=== PATIENT | male | born 1970 | race Hispanic/Latino ===

== ENCOUNTER 2020-01-28 03:34 | Inpatient (IN) | payer MEDICAID, OTHER ==
[~2020-01-28] VITALS: Ht 172.7 cm; Wt 79.4 kg
[2020-01-28] MEDS ORDERED: SODIUM CHLORIDE 0.9% 1000ML 1,000 ML IV ONE ×2 (04:12→06:45)
[2020-01-28] MEDS ORDERED: ONDANSETRON HCL 4 MG/2 ML VIAL ONE (04:12)
[2020-01-28 04:23] LABS: BASOPHILS % (AUTO) 0.3 % (0.0-5.0); EOSINOPHILS % (AUTO) 1.6 % (0.0-8.0); LYMPHOCYTES % (AUTO) 32.2 % (21.0-51.0); MEAN CORPUSCULAR HEMOGLOBIN 28.8 pg (27.0-33.0); MEAN CORPUSCULAR HGB CONC 32.9 g/dL (32.0-36.0); MEAN CORPUSCULAR VOLUME 87.5 fL (79-99); MONOCYTES % (AUTO) 10.8 % (3.0-13.0); NEUTROPHILS % (AUTO) 54.8 % (40.0-77.0); PLATELET COUNT (AUTO) 125 K/uL (130-400); RED CELL DISTRIBUTION WIDTH 15.2 % (11.0-15.5); WHITE BLOOD COUNT (AUTO) 7.1 K/uL (4.8-10.8)
[2020-01-28] MEDS ORDERED: MORPHINE SULFATE 4 MG/1ML SYG ONE (04:30)
[2020-01-28 04:35] LABS: APPEARANCE,URINE Cloudy (CLEAR); BILIRUBIN,URINE Small (NEGATIVE); COLOR,URINE Dark Yellow (YELLOW); GLUCOSE, URINE (UA) Negative (NEGATIVE); KETONES,URINE Trace mg/dL (NEGATIVE); LEUKOCYTE ESTERASE ,URINE Trace (NEGATIVE); NITRATE,URINE Negative (NEGATIVE); OCCULT BLOOD,URINE Negative (NEGATIVE); PROTEIN,URINE 300 mg/dL (NEGATIVE)
[2020-01-28 04:39] LABS: CREATININE 1.4 mg/dL (0.5-1.5); POTASSIUM 4.3 mmol/L (3.5-5.1)
[2020-01-28 04:45] LABS: ALBUMIN 3.4 g/dL (3.5-5.0); BILIRUBIN,TOTAL 1.3 mg/dL (0.2-1.0); TOTAL PROTEIN, SERUM 6.2 g/dL (6.0-8.3)
[2020-01-28 05:00] LABS: BACTERIA,URINE None Seen /HPF (None Seen); RBC,URINE None Seen /HPF (0-1); SQUAMOUS EPITHELIAL CELL,UR Rare /HPF (0-2); WBC,URINE 0-1 /HPF (0-1)
[2020-01-28] MEDS ORDERED: ZOSYN 3.375GM+NS 50ML 50 ML IV ONE (06:45)
[2020-01-28] MEDS ORDERED: ACETAMINOPHEN 325 MG TAB PO PRN (07:00)
[2020-01-28] MEDS ORDERED: MORPHINE SULFATE 2 MG/ML 1ML SYG IVP PRN (07:00)
[2020-01-28] MEDS ORDERED: ONDANSETRON HCL 4 MG/2 ML VIAL IVP PRN (07:00)
[2020-01-28 07:42] LABS: INR 1.12 (0.85-1.15)
[2020-01-28 08:00] VITALS: BP 116/60
[2020-01-28] MEDS ORDERED: ATOR-2 PO (11:32)
[2020-01-28] MEDS ORDERED: ASPI-555 PO (11:32)
[2020-01-28] MEDS ORDERED: LISI-617 PO (11:32)
[2020-01-28] MEDS ORDERED: DULO20CA18 PO (11:32)
[2020-01-28] MEDS ORDERED: CARV25TA PO (11:32)
[2020-01-28] MEDS ORDERED: EPLE25TA10 PO (11:32)
[2020-01-28 12:00] VITALS: BP 112/52
[2020-01-28] MEDS: SODIUM CHLORIDE 0.9% 1000ML 1,000 ML IV SCH (12:44)
[2020-01-28] MEDS: ZOSYN 3.375GM+NS 50ML 50 ML IV SCH ×2 (12:44→22:31)
[2020-01-28 16:00] VITALS: BP 117/61
[2020-01-28 19:10] VITALS: BP 119/64
[2020-01-28 23:24] VITALS: BP 108/62
[2020-01-29 03:43] VITALS: BP 103/51
[2020-01-29] MEDS: ZOSYN 3.375GM+NS 50ML 50 ML IV SCH (05:56)
--- NOTE | 2020-01-29 06:37 | NUR ---
PATIENT UPDATE Pt slept well overnight, no complaints of any abdominal pain, no nausea nor vomiting.
[2020-01-29] MEDS: SODIUM CHLORIDE 0.9% 1000ML 1,000 ML IV SCH (07:00)
[2020-01-29 07:37] VITALS: BP 115/57
[2020-01-29 11:05] VITALS: BP 125/65
--- NOTE | 2020-01-29 15:55 | NUR ---
PATIENT DISCHARGE PATIENT DISCHARGED, IV DISCONTINUED, BLEEDING CONTROLLED, CATHLON INTACT, PATIENT TOLERATED WITHOUT INCIDENT.
[2020-01-29 16:00] VITALS: BP 104/67
--- NOTE | 2020-01-29 19:22 | NUR ---
ADRIEN NOTE CM reviewed medical record. Pt discharged to home. No needs per chart review. Addendum: 01/29/20 at 1923 by MOIZ WOLFE CM Amended: Links added.
== END 2020-01-29 17:44 | disposition home or self-care (01) | DRG 392 ==
LOC: EDH 03:34 → EDHIP 03:35 → 3CH 09:06
PROVIDERS: ADMIT Internal Medicine Infectious Disease; ATTEND Internal Medicine Infectious Disease
DX: R11.2 Nausea with vomiting, unspecified (principal); N17.9 Acute kidney failure, unspecified; F41.9 Anxiety disorder, unspecified; F32.9 Major depressive disorder, single episode, unspecified; E86.0 Dehydration; I50.9 Heart failure, unspecified; I11.0 Hypertensive heart disease with heart failure; Z95.0 Presence of cardiac pacemaker
CPT/HCPCS: 36415; 71045; 74176; 76705; 78227; 80053; 81001; 82550; 83690; 84484; 85025; 85610; 85730; 93005; A9537; G0378; J2270; J2405; J2543; J7030

== ENCOUNTER 2020-02-01 13:06 | Inpatient (IN) | payer MEDICAID, OTHER ==
[~2020-02-01] VITALS: Ht 172.7 cm; Wt 79.8 kg
[~2020-02-01 13:06] MED LIST: ASPI-555 PO; ATOR-2 PO; CARV25TA PO; DULO20CA18 PO; EPLE25TA10 PO; LISI-617 PO
[2020-02-01 13:45] LABS: BASOPHILS % (AUTO) 0.1 % (0.0-5.0); EOSINOPHILS % (AUTO) 0.4 % (0.0-8.0); HEMATOCRIT 43.9 % (42-54); LYMPHOCYTES % (AUTO) 20.4 % (21.0-51.0); MEAN CORPUSCULAR HEMOGLOBIN 28.3 pg (27.0-33.0); MEAN CORPUSCULAR HGB CONC 32.6 g/dL (32.0-36.0); MEAN CORPUSCULAR VOLUME 86.9 fL (79-99); NUCLEATED RED BLOOD CELLS 0.3 % (0.0-0.19); PLATELET COUNT (AUTO) 140 K/uL (130-400); RED BLOOD CELL COUNT(AUTO) 5.05 MIL/uL (4.50-6.20); RED CELL DISTRIBUTION WIDTH 15.1 % (11.0-15.5); WHITE BLOOD COUNT (AUTO) 7.3 K/uL (4.8-10.8)
[2020-02-01 13:51] LABS: CREATININE 1.3 mg/dL (0.5-1.5); POTASSIUM 5.3 mmol/L (3.5-5.1)
[2020-02-01 13:55] LABS: ALBUMIN 3.2 g/dL (3.5-5.0); BILIRUBIN,TOTAL 1.9 mg/dL (0.2-1.0); TOTAL PROTEIN, SERUM 6.3 g/dL (6.0-8.3)
[2020-02-01] MEDS ORDERED: IOHEXOL-350 75 ML VIAL IV ONE (14:27)
[2020-02-01] MEDS ORDERED: ONDANSETRON HCL 4 MG/2 ML VIAL ONE (14:53)
[2020-02-01] MEDS ORDERED: MORPHINE SULFATE 4 MG/1ML SYG ONE (14:53)
[2020-02-01] MEDS ORDERED: SODIUM CHLORIDE 0.9% 1000ML 1,000 ML IV ONE (14:59)
[2020-02-01] MEDS ORDERED: ACETAMINOPHEN 325 MG TAB PO PRN (16:00)
[2020-02-01 16:30] VITALS: BP 92/53
[2020-02-01] MEDS: DEXTROSE 5 % AND 0.9 % NACL 1,000 ML IV SCH (19:41)
[2020-02-01 20:00] VITALS: BP 96/50
[2020-02-01] MEDS ORDERED: DULO40CA2 PO (21:58)
[2020-02-02] VITALS: BP 117/75
[2020-02-02 03:56] VITALS: BP 105/51
[2020-02-02 05:10] LABS: BASOPHILS % (AUTO) 0.1 % (0.0-5.0); LYMPHOCYTES % (AUTO) 16.9 % (21.0-51.0); MEAN CORPUSCULAR HEMOGLOBIN 28.2 pg (27.0-33.0); MEAN CORPUSCULAR HGB CONC 32.1 g/dL (32.0-36.0); MEAN CORPUSCULAR VOLUME 87.7 fL (79-99); MONOCYTES % (AUTO) 11.4 % (3.0-13.0); NEUTROPHILS % (AUTO) 71.3 % (40.0-77.0); NUCLEATED RED BLOOD CELLS 0.4 % (0.0-0.19); PLATELET COUNT (AUTO) 138 K/uL (130-400); RED BLOOD CELL COUNT(AUTO) 4.79 MIL/uL (4.50-6.20); RED CELL DISTRIBUTION WIDTH 15.2 % (11.0-15.5); WHITE BLOOD COUNT (AUTO) 6.9 K/uL (4.8-10.8)
[2020-02-02 05:37] LABS: ALBUMIN 2.9 g/dL (3.5-5.0); BILIRUBIN,TOTAL 2.1 mg/dL (0.2-1.0); CREATININE 1.4 mg/dL (0.5-1.5); MAGNESIUM 2.3 mg/dL (1.80-2.40); POTASSIUM 5.4 mmol/L (3.5-5.1); TOTAL PROTEIN, SERUM 5.7 g/dL (6.0-8.3)
[2020-02-02 07:23] VITALS: BP 105/56
[2020-02-02] MEDS: ONDANSETRON HCL 4 MG/2 ML VIAL IVP PRN ×2 (09:06→19:24)
[2020-02-02 10:52] VITALS: BP 93/48
[2020-02-02 15:48] VITALS: BP 108/55
[2020-02-02] MEDS: DEXTROSE 5 % AND 0.9 % NACL 1,000 ML IV SCH (16:08)
[2020-02-02 19:00] VITALS: BP 102/50
[2020-02-02] MEDS: MORPHINE SULFATE 2 MG/ML 1ML SYG IVP PRN (19:25)
[2020-02-03] VITALS (7 sets, daily range): BP systolic 93–116; BP diastolic 43–55
[2020-02-03] MEDS: ONDANSETRON HCL 4 MG/2 ML VIAL IVP PRN ×2 (05:38→21:33)
[2020-02-03] MEDS: MORPHINE SULFATE 2 MG/ML 1ML SYG IVP PRN ×2 (05:38→21:33)
--- NOTE | 2020-02-03 10:37 | NUR ---
CARDIOLOGY CONSULT Called Dr. Aggarwal's office. Stated to paged him. Paged him and pending for him to call back.
--- NOTE | 2020-02-03 13:00 | NUR ---
DR. MORRIS FOLLOW UP Has been paged a couple of times. No answer. Office was notified; first stated to page him, which was done but no answer. Then they took message and information and stated they will be updated
--- NOTE | 2020-02-03 14:54 | NUR ---
INITIAL Patient lives with spouse, Chelo Richards, [phone]. No home services or DME. Patient needs help with ADL's and does not drive. PCP is Dr. Finesse Cadet. Pharmacy is [facility] located in [place]. DCP is home. Addendum: 02/03/20 at 1456 by ANAYA OWUSU SS Amended: Links added. Addendum: 02/03/20 at 1456 by ANAYA OWUSU SS Patient has no insurance or benefits. He is a [place] citizen and has worked in the . Patient was provided with community resources for post hospitalization follow up. Patient was also provided with Good RX card for prescriptions and educated on [employer] $4 medication program and [facility] $5 medication program. Patient is being assisted by [employer] for financial matters.
--- NOTE | 2020-02-03 19:25 | NUR ---
PM Assessment Received pt with no family around, routine assessment done, plan of care discuss, made aware that he is still pending cardiac clearance, then plan for surgery possibly for tomorrow. Pt instructed need to be NPO post MN & need to take a shower in AM,agreed. Pt currently denies discomfort. Claimed last BM yesterday 02/02/2020.
[2020-02-04 04:25] VITALS: BP 100/54
[2020-02-04 08:00] VITALS: BP 102/49
[2020-02-04] MEDS ORDERED: BUPIVACAINE/PF 0.5% 30ML VIAL ONE (08:12)
--- NOTE | 2020-02-04 08:20 | NUR ---
DR. JUNE SPOKE TO MD VIA TELEPHONE AND INFORMED HIM THAT DR. MORRIS HAS NOT CLEARED PATIENT FOR SURGERY YET. DR. JUNE REPLIED TO POSTPONE SURGERY FOR NOW, OKAY TO FEED PATIENT, AND TO NOTIFY HIM WHEN DR. MORRIS CLEARS PATIENT FOR SURGERY.
--- NOTE | 2020-02-04 08:25 | NUR ---
DR. MORRIS SPOKE TO DR. MORRIS REGARDING CONSULT. MD STATED HE WOULD BE IN TO SEE PATIENT TODAY.
[2020-02-04] MEDS: MORPHINE SULFATE 2 MG/ML 1ML SYG IVP PRN ×2 (08:33→22:31)
[2020-02-04 12:00] VITALS: BP 104/49
[2020-02-04] MEDS ORDERED: FUROSEMIDE 10 MG/ML 4ML VIAL ONE (13:19)
[2020-02-04] MEDS ORDERED: FUROSEMIDE 10 MG/ML 4ML VIAL IV SCH (13:30)
[2020-02-04 14:27] LABS: CREATININE 1.5 mg/dL (0.5-1.5); POTASSIUM 5.3 mmol/L (3.5-5.1)
[2020-02-04 15:56] VITALS: BP 92/48
[2020-02-04] MEDS ORDERED: SODIUM POLYSTYRENE SULFONATE 15 GM/60 ML ML PO SCH (17:00)
[2020-02-04 19:43] VITALS: BP 116/43
[2020-02-04] MEDS: FUROSEMIDE 40 MG TABLET PO SCH (20:46)
[2020-02-04] MEDS: LISINOPRIL 5 MG TABLET PO SCH (21:00)
[2020-02-04] MEDS: ONDANSETRON HCL 4 MG/2 ML VIAL IVP PRN (22:24)
[2020-02-04] MEDS: DULOXETINE HCL 40 MG PO SCH (22:34)
[2020-02-04] MEDS: CARVEDILOL 25 MG TABLET PO SCH (22:34)
[2020-02-04 23:18] VITALS: BP 111/47
[2020-02-05 04:02] VITALS: BP 112/56
[2020-02-05 05:03] LABS: HEMATOCRIT 40.1 % (42-54); MEAN CORPUSCULAR HEMOGLOBIN 28.5 pg (27.0-33.0); MEAN CORPUSCULAR HGB CONC 33.2 g/dL (32.0-36.0); MEAN CORPUSCULAR VOLUME 86.1 fL (79-99); NUCLEATED RED BLOOD CELLS 1.8 % (0.0-0.19); PLATELET COUNT (AUTO) 128 K/uL (130-400); RED BLOOD CELL COUNT(AUTO) 4.66 MIL/uL (4.50-6.20); RED CELL DISTRIBUTION WIDTH 14.9 % (11.0-15.5); WHITE BLOOD COUNT (AUTO) 8.3 K/uL (4.8-10.8)
[2020-02-05 05:23] LABS: BAND NEUTROPHILS % (MANUAL) 4 % (0-2); LYMPHOCYTES % (MANUAL) 19 % (22-44); MAN.DIFF COMMENT-IMPRESSION MANUAL DIFFERENTIAL; MONOCYTES % (MANUAL) 8 % (2-9); PLATELET MORPHOLOGY COMMENT ADEQUATE; SEGMENTED NEUTROPHILS % 69 % (40-70)
[2020-02-05 05:28] LABS: B-TYPE NATRIURETIC PEPTIDE 2750 pg/mL (0-100)
[2020-02-05 05:40] LABS: ALBUMIN 2.9 g/dL (3.5-5.0); BILIRUBIN,TOTAL 2.4 mg/dL (0.2-1.0); CREATININE 1.6 mg/dL (0.5-1.5); MAGNESIUM 2.2 mg/dL (1.80-2.40); POTASSIUM 4.1 mmol/L (3.5-5.1); TOTAL PROTEIN, SERUM 5.7 g/dL (6.0-8.3)
[2020-02-05 08:00] VITALS: BP 109/51
[2020-02-05] MEDS: ASPIRIN 81 MG EC TAB PO SCH (08:43)
[2020-02-05] MEDS: LISINOPRIL 5 MG TABLET PO SCH ×2 (08:44→21:38)
[2020-02-05] MEDS: CARVEDILOL 25 MG TABLET PO SCH ×2 (08:44→21:38)
[2020-02-05] MEDS: FUROSEMIDE 40 MG TABLET PO SCH ×2 (08:53→21:38)
[2020-02-05] MEDS: DULOXETINE HCL 40 MG PO SCH ×2 (08:55→21:00)
[2020-02-05] MEDS: EPLERENONE 25 MG PO SCH (08:55)
[2020-02-05] MEDS ORDERED: ATORVASTATIN CALCIUM 40 MG TABLET PO SCH (09:00)
[2020-02-05 11:34] VITALS: BP 104/58
--- NOTE | 2020-02-05 14:28 | NUR ---
PLAN OF CARE DISCUSSED WITH JUNIOR SPARROW IN AM Addendum: 02/05/20 at 1429 by CHELITA BAILEY RN CM Amended: Links added.
[2020-02-05 16:00] VITALS: BP 100/52
[2020-02-05 19:59] VITALS: BP 96/47
--- NOTE | 2020-02-05 21:38 | NUR ---
MEDS SHIFT ASSESSMENT DONE, PLEASE REFER TO CHART. DUE MEDS ADMINISTERED, TOLERATED WELL. INSTRUCTED TO BE NPO POST MN, VERBALIZES UNDERSTANDING. KEPT RESTED AND COMFORTABLE. CALL LIGHT WITHIN REACH. WILL MONITOR PT. Addendum: 02/06/20 at 0111 by ASHLEE SANTIAGO RN RN Amended: Links added.
[2020-02-05 23:19] VITALS: BP 101/41
[2020-02-06] VITALS (25 sets, daily range): BP systolic 97–119; BP diastolic 41–53
--- NOTE | 2020-02-06 02:00 | NUR ---
ROUNDS PT RESTING WELL, FAIRLY ASLEEP. NO DISTRESS NOTED. KEPT RESTED AND COMFORTABLE. KEPT NPO. WILL MONITOR PT.
--- NOTE | 2020-02-06 04:00 | NUR ---
CONSENT PT ALREADY HAD HIS SHOWER, TOLERATED ACTIVITY WELL. PT VERBALIZES UNDERSTANDING OF SX TO BE DONE. CONSENT FOR SX SIGNED BY PT, WITNESSED BY MOLDING LINE OPERATOR. NO COMPLAINTS VERBALIZED. ENCOURAGED TO GO BACK TO SLEEP.
--- NOTE | 2020-02-06 05:00 | NUR ---
MEDS DOSE OF COREG ADMINISTERED WITH SIP OF WATER OTHERWISE KEPT NPO. FOR MORE CARE.
[2020-02-06] MEDS: CARVEDILOL 25 MG TABLET PO SCH ×2 (05:02→21:01)
[2020-02-06 05:09] LABS: HEMATOCRIT 38.2 % (42-54); MEAN CORPUSCULAR HEMOGLOBIN 28.5 pg (27.0-33.0); MEAN CORPUSCULAR HGB CONC 33.8 g/dL (32.0-36.0); MEAN CORPUSCULAR VOLUME 84.3 fL (79-99); NUCLEATED RED BLOOD CELLS 1.2 % (0.0-0.19); PLATELET COUNT (AUTO) 118 K/uL (130-400); RED BLOOD CELL COUNT(AUTO) 4.53 MIL/uL (4.50-6.20); RED CELL DISTRIBUTION WIDTH 14.8 % (11.0-15.5); WHITE BLOOD COUNT (AUTO) 7.4 K/uL (4.8-10.8)
[2020-02-06 05:20] LABS: CREATININE 1.4 mg/dL (0.5-1.5); PHOSPHORUS 4.4 mg/dL (2.5-4.9); POTASSIUM 3.3 mmol/L (3.5-5.1)
[2020-02-06 05:22] LABS: EOSINOPHILS % (MANUAL) 3 % (1-6); LYMPHOCYTES % (MANUAL) 12 % (22-44); MONOCYTES % (MANUAL) 5 % (2-9); SEGMENTED NEUTROPHILS % 80 % (40-70)
[2020-02-06 05:23] LABS: MAN.DIFF COMMENT-IMPRESSION MANUAL DIFFERENTIAL; PLATELET MORPHOLOGY COMMENT ADEQUATE
--- NOTE | 2020-02-06 07:30 | NUR ---
SURGERY JUNIOR WICK, IN TO TAKE PT DOWN FOR SX. REPORT GIVEN TO INCOMING SHIFT, JUNIOR PEÑA. FOR MORE CARE AND MANAGEMENT.
[2020-02-06] MEDS ORDERED: LACTATED RINGERS 1000ML 1,000 ML IV ONE (07:35)
--- NOTE | 2020-02-06 08:00 | NUR ---
UNABLE TO DO ASSESSMENT . PT HAD ALREADY LEFT TO SURGERY, Early am
[2020-02-06] MEDS ORDERED: IOHEXOL-350 50ML VIAL IV ONE (08:11)
[2020-02-06] MEDS ORDERED: LIDOCAINE PF 2% 5ML ABBOJECT ONE (08:29)
[2020-02-06] MEDS ORDERED: DEXAMETHASONE SOD PHOSPHATE 10MG/ML 1ML VIAL ONE (08:29)
[2020-02-06] MEDS ORDERED: ONDANSETRON HCL 4 MG/2 ML VIAL ONE (08:29)
[2020-02-06] MEDS ORDERED: PROPOFOL 10 MG/ML 20ML VIAL IV ONE (08:29)
[2020-02-06] MEDS ORDERED: FENTANYL CITRATE PF 50 MCG/1 ML 2ML VIAL ONE (08:30)
[2020-02-06] MEDS ORDERED: MIDAZOLAM HCL 1 MG/ML 2ML VIAL ONE (08:30)
[2020-02-06] MEDS ORDERED: ROCURONIUM 10MG/1ML SYR 10 MG/ML ML ONE (08:30)
[2020-02-06] MEDS: DULOXETINE HCL 40 MG PO SCH ×2 (09:00→21:00)
[2020-02-06] MEDS: EPLERENONE 25 MG PO SCH (09:00)
[2020-02-06] MEDS: ASPIRIN 81 MG EC TAB PO SCH (09:00)
[2020-02-06] MEDS ORDERED: CEFAZOLIN SODIUM 1 GM VIAL ONE (09:03)
[2020-02-06] MEDS ORDERED: EPHEDRINE SULFATE 50 MG/ML AMPULE ONE (09:06)
[2020-02-06] MEDS ORDERED: BUPIVACAINE/PF 0.5% 30ML VIAL ONE (09:08)
[2020-02-06] MEDS ORDERED: NEOSTIGMINE 5MG/5ML SYR IV ONE (09:40)
[2020-02-06] MEDS ORDERED: GLYCOPYRROLATE 1 MG/5 ML SYRINGE ONE (09:40)
[2020-02-06] MEDS: LISINOPRIL 5 MG TABLET PO SCH ×2 (11:23→21:02)
[2020-02-06] MEDS: FUROSEMIDE 40 MG TABLET PO SCH ×2 (11:23→21:02)
[2020-02-06] MEDS: MORPHINE SULFATE 2 MG/ML 1ML SYG IVP PRN (11:29)
--- NOTE | 2020-02-06 14:00 | NUR ---
PT BACK FROM SURGERY, PT AAO X 3 REVIEW POSTOP ORDERS ASSESSMENT TO HIS ABD , DONE, WITH BANDAIDS X [address] MID ABD AND RT SIDE OF ABD, DRY AND CLEAN ABD SOFT TO TOUCH, BUTTENDER POSTOP V/S STARTED ,AND CAll light in reach,,
[2020-02-06] MEDS ORDERED: ACETAMINOPHEN-CODEINE 300/30MG TAB PO PRN (14:45)
[2020-02-06] MEDS: CEFAZOLIN SODIUM 1 GM VIAL IVP SCH (20:02)
[2020-02-06] MEDS: LACTATED RINGERS 1000ML 1,000 ML IV SCH (20:02)
--- NOTE | 2020-02-06 21:15 | NUR ---
MEDS SHIFT ASSESSMENT DONE, PLEASE REFER TO CHART. DUE MEDS ADMINISTERED, TOLERATED WELL. TYLENOL #3 GIVEN FOR PAIN. WILL RE-ASSESS PT. CALL LIGHT WITHIN REACH. Addendum: 02/07/20 at 0259 by ASHLEE SANTIAGO RN RN Amended: Links added.
--- NOTE | 2020-02-06 23:35 | NUR ---
PIV PT'S PIV STARTED LEAKING. DISCONTINUED SITE WITH CATHETER INTACT. RE-INSERTED G20 TO RT WRIST AREA, TOLERATED WELL. CONTINUED IVF INFUSION. ENCOURAGED TO GO BACK TO SLEEP. CALL LIGHT WITHIN REACH. WILL MONITOR PT. Addendum: 02/07/20 at 0304 by ASHLEE SANTIAGO RN RN Amended: Links added.
[2020-02-07] MEDS: CEFAZOLIN SODIUM 1 GM VIAL IVP SCH (01:09)
--- NOTE | 2020-02-07 02:00 | NUR ---
ROUNDS PT RESTING WELL, FAIRLY ASLEEP. NO DISTRESS NOTED. KEPT UNDISTURBED FOR NOW. WILL MONITOR PT. CALL LIGHT WITHIN REACH.
[2020-02-07] MEDS: LACTATED RINGERS 1000ML 1,000 ML IV SCH (03:05)
[2020-02-07 04:03] VITALS: BP 100/46
[2020-02-07 05:11] LABS: HEMATOCRIT 40.4 % (42-54); MEAN CORPUSCULAR HEMOGLOBIN 28.5 pg (27.0-33.0); MEAN CORPUSCULAR HGB CONC 33.7 g/dL (32.0-36.0); MEAN CORPUSCULAR VOLUME 84.7 fL (79-99); NUCLEATED RED BLOOD CELLS 0.4 % (0.0-0.19); PLATELET COUNT (AUTO) 121 K/uL (130-400); RED BLOOD CELL COUNT(AUTO) 4.77 MIL/uL (4.50-6.20); RED CELL DISTRIBUTION WIDTH 14.7 % (11.0-15.5); WHITE BLOOD COUNT (AUTO) 8.4 K/uL (4.8-10.8)
[2020-02-07 05:38] LABS: ALBUMIN 2.5 g/dL (3.5-5.0); CREATININE 1.1 mg/dL (0.5-1.5); POTASSIUM 3.1 mmol/L (3.5-5.1); TOTAL PROTEIN, SERUM 5.2 g/dL (6.0-8.3)
--- NOTE | 2020-02-07 06:00 | NUR ---
ROUNDS PT RESTING WELL, NO DISTRESS NOTED. NO CONCERNS VERBALIZED. KEPT COMFORTABLE AND RESTED. FOR MORE CARE.
[2020-02-07 07:30] VITALS: BP 100/43
[2020-02-07] MEDS: EPLERENONE 25 MG PO SCH (09:00)
[2020-02-07] MEDS: DULOXETINE HCL 40 MG PO SCH ×2 (09:00→20:02)
[2020-02-07] MEDS: LISINOPRIL 5 MG TABLET PO SCH ×2 (10:54→20:02)
[2020-02-07] MEDS: CARVEDILOL 25 MG TABLET PO SCH ×2 (10:54→20:01)
[2020-02-07 11:00] VITALS: BP 96/39
--- NOTE | 2020-02-07 14:58 | NUR ---
ELIZABETH SCREEN - LOS X 6 PT is s/p Nancy Webb. Pt diet has been advanced to Full Liquid diet at time of screen. Pt PO intake 100%. Recommend to continue to advance as tolerated to GI Soft/Thor diet order, as medically feasible. RD to continue to monitor nutritional labs, PO status and advancement. Please notify RD as additional nutrition concerns arise. Thank you. Addendum: 02/07/20 at [address] Amended: Links added.
[2020-02-07 16:00] VITALS: BP 91/39
[2020-02-07 19:54] VITALS: BP 97/44
[2020-02-07 23:19] VITALS: BP 103/46
[2020-02-08 04:00] VITALS: BP 103/45
[2020-02-08 06:12] LABS: HEMATOCRIT 41.1 % (42-54); MEAN CORPUSCULAR HEMOGLOBIN 27.8 pg (27.0-33.0); MEAN CORPUSCULAR HGB CONC 32.4 g/dL (32.0-36.0); NUCLEATED RED BLOOD CELLS 0.2 % (0.0-0.19); PLATELET COUNT (AUTO) 137 K/uL (130-400); RED BLOOD CELL COUNT(AUTO) 4.78 MIL/uL (4.50-6.20); RED CELL DISTRIBUTION WIDTH 15.2 % (11.0-15.5); WHITE BLOOD COUNT (AUTO) 8.2 K/uL (4.8-10.8)
[2020-02-08 06:31] LABS: ALBUMIN 2.7 g/dL (3.5-5.0); BILIRUBIN,TOTAL 3.2 mg/dL (0.2-1.0); CREATININE 1.1 mg/dL (0.5-1.5); MAGNESIUM 1.6 mg/dL (1.80-2.40); POTASSIUM 3.2 mmol/L (3.5-5.1); TOTAL PROTEIN, SERUM 5.6 g/dL (6.0-8.3)
[2020-02-08] MEDS ORDERED: POTASSIUM CHLORIDE 20MEQ/100ML 100 ML IV PRN (06:45)
[2020-02-08] MEDS ORDERED: POTASSIUM CHLORIDE 10% ELIXIR 20 MEQ/15 ML UDCUP PO PRN (06:45)
[2020-02-08] MEDS ORDERED: LIDOCAINE HCL-MPF 1% 2ML VIAL IV PRN (06:45)
[2020-02-08 06:47] LABS: EOSINOPHILS % (MANUAL) 1 % (1-6); LYMPHOCYTES % (MANUAL) 17 % (22-44); MAN.DIFF COMMENT-IMPRESSION MANUAL DIFFERENTIAL; MONOCYTES % (MANUAL) 9 % (2-9); PLATELET MORPHOLOGY COMMENT ADEQUATE; REACTIVE LYMPHOCYTES 3 % (0-0); SEGMENTED NEUTROPHILS % 70 % (40-70)
--- NOTE | 2020-02-08 07:30 | NUR ---
NOTE AAOX3. DENIES PAIN OR DISCOMFORT. NO DISTRESS OR SOB. BBS CLEAR TO ALL LOBES. NO N/V S/P LAPAROSCOPIC CHOLECYSTECTOMY. 4 SMALL BAND-AID DRESSING TO ABDOMEN AND ALL D/I. HE HAS BEEN CLEARED PER SURGEON TO DC HOME. WAITING ON PRIMARY M.D. TO COME DISCHARGE HI. WILL COVER FOR LOW POTASSIUM PRE PROTOCOL.
[2020-02-08 08:00] VITALS: BP 112/41
[2020-02-08] MEDS: LISINOPRIL 5 MG TABLET PO SCH (08:41)
[2020-02-08] MEDS: CARVEDILOL 25 MG TABLET PO SCH (08:41)
[2020-02-08] MEDS: POTASSIUM CHLORIDE 20 MEQ ERTAB PO PRN ×3 (08:42→14:21)
[2020-02-08] MEDS: EPLERENONE 25 MG PO SCH (08:44)
[2020-02-08] MEDS: DULOXETINE HCL 40 MG PO SCH (08:44)
[2020-02-08 11:47] VITALS: BP 97/40
--- NOTE | 2020-02-08 16:31 | NUR ---
NOTE DISCHARGE INSTRUCTIONS GIVEN TO PATIENT AT THIS TIME. VERBALIZED UNERSTANDING. REFER TO DC SUMMARY FOR DETAILS.
== END 2020-02-08 16:55 | disposition home or self-care (01) | DRG 418 ==
LOC: EDH 13:06 → EDHIP 13:07 → 3CH 16:30
PROVIDERS: ADMIT Internal Medicine Infectious Disease; ATTEND Internal Medicine Infectious Disease
PROC: BF121ZZ Fluoroscopy of Gallbladder using Low Osmolar Contrast (ICD-10-PCS; 2020-02-06)
PROC: 0FT44ZZ Resection of Gallbladder, Percutaneous Endoscopic Approach (ICD-10-PCS; principal; 2020-02-06 08:37)
DX: K81.0 Acute cholecystitis (principal); E87.1 Hypo-osmolality and hyponatremia; I42.9 Cardiomyopathy, unspecified; J98.11 Atelectasis; I50.9 Heart failure, unspecified; I11.0 Hypertensive heart disease with heart failure; G40.909 Epilepsy, unspecified, not intractable, without status epilepticus; K59.00 Constipation, unspecified; K76.89 Other specified diseases of liver; F32.9 Major depressive disorder, single episode, unspecified; F41.9 Anxiety disorder, unspecified; Z95.0 Presence of cardiac pacemaker
CPT/HCPCS: 36415; 74177; 74300; 76705; 80048; 80053; 83690; 83735; 83880; 84100; 84484; 85025; 85027; 93005; C1758; G0378; J0690; J1100; J1940; J2001; J2250; J2270; J2405; J2704; J2710; J3010; J3490; J7030; J7042; J7120; Q9967

== ENCOUNTER 2020-02-16 15:26 | Inpatient (IN) | payer OTHER ==
[~2020-02-16] VITALS: Ht 172.7 cm; Wt 71.7 kg
[~2020-02-16 15:26] MED LIST changes: -ATOR-2 PO; -DULO20CA18 PO; +DULO40CA2 PO
[2020-02-16 15:53] LABS: BASOPHILS % (AUTO) 0.3 % (0.0-5.0); EOSINOPHILS % (AUTO) 0.5 % (0.0-8.0); HEMATOCRIT 41.8 % (42-54); LYMPHOCYTES % (AUTO) 23.5 % (21.0-51.0); MEAN CORPUSCULAR HEMOGLOBIN 28.4 pg (27.0-33.0); MEAN CORPUSCULAR HGB CONC 33.3 g/dL (32.0-36.0); MEAN CORPUSCULAR VOLUME 85.3 fL (79-99); MONOCYTES % (AUTO) 9.8 % (3.0-13.0); NEUTROPHILS % (AUTO) 65.4 % (40.0-77.0); PLATELET COUNT (AUTO) 133 K/uL (130-400); RED CELL DISTRIBUTION WIDTH 15.7 % (11.0-15.5); WHITE BLOOD COUNT (AUTO) 6.4 K/uL (4.8-10.8)
[2020-02-16 16:08] LABS: AMYLASE 60 U/L (25-115); LIPASE 167 U/L (114-286)
[2020-02-16 16:11] LABS: INR 1.21 (0.85-1.15)
[2020-02-16 16:15] LABS: CREATININE 1.4 mg/dL (0.5-1.5); POTASSIUM 4.4 mmol/L (3.5-5.1)
[2020-02-16 16:19] LABS: BILIRUBIN,TOTAL 1.8 mg/dL (0.2-1.0); TOTAL PROTEIN, SERUM 6.2 g/dL (6.0-8.3)
[2020-02-16 16:24] LABS: B-TYPE NATRIURETIC PEPTIDE 3120 pg/mL (0-100)
[2020-02-16 16:54] LABS: APPEARANCE,URINE Clear (CLEAR); BILIRUBIN,URINE Small (NEGATIVE); COLOR,URINE Dark Yellow (YELLOW); GLUCOSE, URINE (UA) Negative (NEGATIVE); KETONES,URINE Negative (NEGATIVE); LEUKOCYTE ESTERASE ,URINE Trace (NEGATIVE); NITRATE,URINE Negative (NEGATIVE); OCCULT BLOOD,URINE Negative (NEGATIVE); PROTEIN,URINE Trace mg/dL (NEGATIVE)
[2020-02-16 17:11] LABS: BACTERIA,URINE Few /HPF (None Seen); MUCUS,URINE Few LPF (None Seen); RBC,URINE None Seen /HPF (0-1); SQUAMOUS EPITHELIAL CELL,UR None Seen /HPF (0-2); WBC,URINE 0-1 /HPF (0-1)
[2020-02-16] MEDS ORDERED: ONDANSETRON HCL 4 MG/2 ML VIAL ONE (17:46)
[2020-02-16] MEDS ORDERED: CEFTRIAXONE SODIUM 1 GM ONE (18:54)
[2020-02-16 19:15] VITALS: BP 104/57
[2020-02-16] MEDS: FUROSEMIDE 10 MG/ML 4ML VIAL IVP SCH (20:00)
[2020-02-16] MEDS ORDERED: FUROSEMIDE 10 MG/ML 4ML VIAL ONE (20:17)
[2020-02-16] MEDS ORDERED: ZOSYN 3.375GM+NS 50ML 50 ML IV ONE (20:17)
[2020-02-16] MEDS: ZOSYN 3.375GM+NS 50ML 50 ML IV SCH (21:00)
[2020-02-16 22:45] LABS: CREATINE KINASE, TOTAL 37 U/L (21-232); MYOGLOBIN 45 ng/mL (10-92); TROPONIN I < 0.04 ng/mL (0.00-0.06)
[2020-02-17] VITALS (7 sets, daily range): BP systolic 93–117; BP diastolic 42–53
[2020-02-17] MEDS: ZOSYN 3.375GM+NS 50ML 50 ML IV SCH ×3 (04:23→20:51)
[2020-02-17 05:05] LABS: CREATINE KINASE, TOTAL 31 U/L (21-232); MYOGLOBIN 54 ng/mL (10-92); TROPONIN I < 0.04 ng/mL (0.00-0.06)
--- NOTE | 2020-02-17 10:02 | NUR ---
DR. LYNN PAGED ELEVATED BNP PENDING CALL BACK.
[2020-02-17 10:46] LABS: CREATINE KINASE, TOTAL 28 U/L (21-232); MYOGLOBIN 41 ng/mL (10-92); TROPONIN I < 0.04 ng/mL (0.00-0.06)
[2020-02-17] MEDS: FUROSEMIDE 10 MG/ML 4ML VIAL IVP SCH ×2 (11:15→14:00)
--- NOTE | 2020-02-17 11:59 | NUR ---
INITIAL Patient lives with spouse, Chelo Richards, [phone]. No home services or DME. Patient needs help with ADL's and does not drive. PCP is Dr. Finesse Cadet. Pharmacy is [facility] located in [place]. DCP is home. Patient has no insurance or benefits. He is a [place] and has worked in the [place]. SW educated patient on [facility] $4 medication program and [facility] $5 medication program during last admission. Patient is being assisted by [employer] for financial matters. Addendum: 02/17/20 at 1201 by ANAYA BALLARD Amended: Links added.
[2020-02-17] MEDS ORDERED: IPRATROPIUM/ALBUTEROL SULFATE 3 ML SOLUTION IH PRN (12:30)
--- NOTE | 2020-02-17 16:20 | NUR ---
PULMONOLOGY GROUP PAGED PENDING CALL BACK. Addendum: 02/17/20 at 1622 by DARY BLAKE RN RN NOTE DONE AT 1004, NECKTIES PAINTER AWARE OF CONSULT (DESTINI).
--- NOTE | 2020-02-17 17:42 | NUR ---
DR. RODRIGUEZ AWARE OF CT CHEST ORDERS ENTERED.
[2020-02-17] MEDS ORDERED: CARVEDILOL 25 MG TABLET PO SCH (21:00)
[2020-02-17] MEDS ORDERED: LISINOPRIL 5 MG TABLET PO SCH (21:00)
[2020-02-18 04:23] VITALS: BP 104/48
[2020-02-18] MEDS: ZOSYN 3.375GM+NS 50ML 50 ML IV SCH ×3 (05:00→21:49)
[2020-02-18 05:25] LABS: HEMATOCRIT 37.2 % (42-54); MEAN CORPUSCULAR HEMOGLOBIN 28.1 pg (27.0-33.0); MEAN CORPUSCULAR HGB CONC 33.1 g/dL (32.0-36.0); MEAN CORPUSCULAR VOLUME 85.1 fL (79-99); PLATELET COUNT (AUTO) 115 K/uL (130-400); RED BLOOD CELL COUNT(AUTO) 4.37 MIL/uL (4.50-6.20); RED CELL DISTRIBUTION WIDTH 15.3 % (11.0-15.5); WHITE BLOOD COUNT (AUTO) 6.5 K/uL (4.8-10.8)
[2020-02-18 05:48] LABS: ALBUMIN 2.7 g/dL (3.5-5.0); BILIRUBIN,TOTAL 1.7 mg/dL (0.2-1.0); CREATININE 1.7 mg/dL (0.5-1.5); MAGNESIUM 2.1 mg/dL (1.80-2.40); POTASSIUM 3.5 mmol/L (3.5-5.1); TOTAL PROTEIN, SERUM 5.7 g/dL (6.0-8.3)
[2020-02-18 07:15] LABS: INR 1.22 (0.85-1.15); PROTHROMBIN TIME 13.1 SEC (9.6-11.6)
[2020-02-18] MEDS: ASPIRIN 81 MG EC TAB PO SCH (07:52)
[2020-02-18] MEDS: DULOXETINE 40 MG PO SCH ×2 (07:53→21:00)
[2020-02-18] MEDS: EPLERENONE 25 MG PO SCH (07:53)
[2020-02-18] MEDS: FUROSEMIDE 10 MG/ML 4ML VIAL IVP SCH (07:53)
[2020-02-18 08:20] VITALS: BP 101/53
--- NOTE | 2020-02-18 08:20 | NUR ---
DR LYNN PAGED X1 RELATED TO CONSULT AGAIN
--- NOTE | 2020-02-18 09:43 | NUR ---
DR GONZALES PAGED REGARDING CONSULT. PENDING CB
[2020-02-18 11:22] VITALS: BP 98/44
[2020-02-18 14:06] LABS: TOTAL PROTEIN, SERUM 6.3 g/dL (6.0-8.3)
--- NOTE | 2020-02-18 15:13 | NUR ---
DR GONZALES CALLED BACK REGARDING CONSULT. STATED PT BNP PREVIOUS ADMISSION WAS ALSO ELEVATED AT 2750, LIKELY A CHRONIC PROBLEM, HE WILL ONLY SEE PT IF CARDIAC SYMPTOMS DEVELOP. NOTED, PT MADE AWARE
[2020-02-18 16:07] LABS: APPEARANCE BODY FLUID CLEAR (CLEAR); COLOR,BODY FLUID YELLOW (LT YELLOW); SPECIMENTYPE,BODY FLUID PLEURAL
[2020-02-18 16:08] LABS: BODY FLUID RBC 210 /cu. mm.; BODY FLUID WBC 225 /cu. mm.; TOTAL VOLUME,BODY FLUID 925 mL
[2020-02-18 16:52] LABS: BF LYMPHOCYTE 57 %; BF MESOTHELIAL 7 %; BF OTHER CELLS 17
[2020-02-18 17:02] VITALS: BP 101/48
[2020-02-18 19:00] VITALS: BP 102/50
[2020-02-18 23:00] VITALS: BP 103/51
[2020-02-19 03:00] VITALS: BP 106/56
[2020-02-19] MEDS: ZOSYN 3.375GM+NS 50ML 50 ML IV SCH (04:26)
[2020-02-19 05:43] LABS: CREATININE 1.5 mg/dL (0.5-1.5); POTASSIUM 3.5 mmol/L (3.5-5.1)
--- NOTE | 2020-02-19 07:30 | NUR ---
note AAOX3. DENIES PAIN OR DISCOMFORT. NO DISTRESS OR SOB. BBS CLEAR TO ALL LOBES. NO N/V ADMITTED WITH SWELLING TO BLE. HAD PLEURAL EFFUSION AND RIGHT SIDE WITH THORACENTESIS DONE YESTERDAY. STATES HE FEELS READY TO BE DISCHARGED. WILL WAIT FOR PRIMARY TEAM.
[2020-02-19 08:06] VITALS: BP 106/53
[2020-02-19] MEDS: EPLERENONE 25 MG PO SCH (09:00)
[2020-02-19] MEDS: DULOXETINE 40 MG PO SCH (09:00)
[2020-02-19] MEDS: ASPIRIN 81 MG EC TAB PO SCH (09:52)
[2020-02-19] MEDS: FUROSEMIDE 10 MG/ML 4ML VIAL IVP SCH (09:52)
--- NOTE | 2020-02-19 11:00 | NUR ---
NOTE DR LUJAN MADE ROUNDS AND HE IS DISCHARGING PATIENT TO GO HOME AND FOLLOW UP WITH PCP AND CARDIOLOGY
[2020-02-19 11:37] VITALS: BP 114/54
--- NOTE | 2020-02-19 13:45 | NUR ---
note discharge instructions given to patient. refer to dc summary for details.
== END 2020-02-19 14:35 | disposition home or self-care (01) | DRG 727 ==
LOC: EDH 15:26 → EDHIP 15:27 → OBSVTOIN 15:27 → 3BH 21:09
PROVIDERS: ADMIT Internal Medicine Infectious Disease; ATTEND Internal Medicine Infectious Disease
PROC: 0W993ZZ Drainage of Right Pleural Cavity, Percutaneous Approach (ICD-10-PCS; principal; 2020-02-18)
DX: N49.2 Inflammatory disorders of scrotum (principal); J18.9 Pneumonia, unspecified organism; I42.9 Cardiomyopathy, unspecified; I11.0 Hypertensive heart disease with heart failure; I50.9 Heart failure, unspecified; G40.909 Epilepsy, unspecified, not intractable, without status epilepticus; N50.89 Other specified disorders of the male genital organs; N19 Unspecified kidney failure; F32.9 Major depressive disorder, single episode, unspecified; F41.9 Anxiety disorder, unspecified; Z95.810 Presence of automatic (implantable) cardiac defibrillator; Z90.49 Acquired absence of other specified parts of digestive tract
CPT/HCPCS: 36415; 71045; 71046; 71250; 74176; 76870; 80048; 80053; 81001; 82150; 82550; 82945; 83605; 83615; 83690; 83735; 83874; 83880; 83986; 84155; 84157; 84484; 85025; 85027; 85610; 85730; 87040; 87071; 87116; 87205; 87206; 89051; 93005; 94664; G0378; J0696; J1940; J2405; J2543

== ENCOUNTER 2020-02-25 21:07 | Inpatient (IN) | payer MEDICAID, OTHER ==
[~2020-02-25] VITALS: Ht 172.7 cm; Wt 60.9 kg
[~2020-02-25 21:07] MED LIST changes: -ASPI-555 PO; +ASPI-556 PO
[2020-02-25] MEDS ORDERED: FAMOTIDINE/PF 20 MG/2 ML VIAL IV ONE (21:35)
[2020-02-25] MEDS ORDERED: ONDANSETRON HCL 4 MG/2 ML VIAL ONE (21:35)
[2020-02-25 21:40] LABS: BASOPHILS % (AUTO) 0.1 % (0.0-5.0); EOSINOPHILS % (AUTO) 0.4 % (0.0-8.0); HEMATOCRIT 43.1 % (42-54); LYMPHOCYTES % (AUTO) 23.2 % (21.0-51.0); MEAN CORPUSCULAR HEMOGLOBIN 27.8 pg (27.0-33.0); MEAN CORPUSCULAR HGB CONC 33.9 g/dL (32.0-36.0); MEAN CORPUSCULAR VOLUME 81.9 fL (79-99); NUCLEATED RED BLOOD CELLS 1.5 % (0.0-0.19); PLATELET COUNT (AUTO) 176 K/uL (130-400); RED BLOOD CELL COUNT(AUTO) 5.26 MIL/uL (4.50-6.20); RED CELL DISTRIBUTION WIDTH 15.3 % (11.0-15.5); WHITE BLOOD COUNT (AUTO) 7.6 K/uL (4.8-10.8)
[2020-02-25] MEDS ORDERED: ZOSYN 3.375GM+NS 50ML 50 ML IV ONE (21:47)
[2020-02-25 21:57] LABS: BILIRUBIN,TOTAL 2.8 mg/dL (0.2-1.0); CREATININE 1.7 mg/dL (0.5-1.5); POTASSIUM 5.4 mmol/L (3.5-5.1); TOTAL PROTEIN, SERUM 6.3 g/dL (6.0-8.3)
[2020-02-25] MEDS ORDERED: MORPHINE SULFATE 4 MG/1ML SYG ONE (22:07)
[2020-02-25 22:45] LABS: INR 1.53 (0.85-1.15); PARTIAL THROMBOPLASTIN TIME 28.1 SEC (26.3-35.5); PROTHROMBIN TIME 16.3 SEC (9.6-11.6)
[2020-02-25 23:05] LABS: ABG BASE EXCESS -9.6 mmol/L (-2.0-3.0); ABG HCO3 11.1 mmol/L (21.0-28.0); ABG OXYGEN SATURATION 98.4 % (95.0-99.0); ABG PCO2 16 mmHg (35-48)
[2020-02-25] MEDS ORDERED: NOREPINEPHRINE BITARTRATE 1 MG/1 ML ML IV ONE (23:16)
[2020-02-26] VITALS (22 sets, daily range): BP systolic 101–123; BP diastolic 34–53
[2020-02-26] MEDS ORDERED: MORPHINE SULFATE 4 MG/1ML SYG ONE (00:28)
[2020-02-26 00:59] LABS: CREATININE 1.7 mg/dL (0.5-1.5)
[2020-02-26 01:05] LABS: POTASSIUM 6.1 mmol/L (3.5-5.1)
[2020-02-26] MEDS ORDERED: SODIUM POLYSTYRENE SULFONATE 15 GM/60 ML ML ONE ×2 (01:32→02:01)
[2020-02-26] MEDS ORDERED: INSULIN HUMULIN R 100 UNIT/ML 3ML ONE (01:33)
[2020-02-26] MEDS ORDERED: DEXTROSE 50%-WATER 50 ML DISP.SYRIN IV ONE (01:34)
[2020-02-26] MEDS ORDERED: SODIUM BICARB 50MEQ 50ML VIAL ONE (01:34)
[2020-02-26] MEDS ORDERED: SODIUM CHLORIDE 0.9% 100 ML IV ONE (01:53)
[2020-02-26] MEDS ORDERED: MORPHINE SULFATE 4 MG/1ML SYG IVP PRN (02:15)
[2020-02-26] MEDS ORDERED: ONDANSETRON HCL 4 MG/2 ML VIAL IVP PRN (02:15)
[2020-02-26] MEDS ORDERED: NOREPINEPHRINE 4MG/NS 250ML IV SCH (02:15)
[2020-02-26] MEDS ORDERED: GLUCAGON 1MG KIT 1 MG ML IM PRN (02:15)
[2020-02-26] MEDS ORDERED: ACETAMINOPHEN 650 MG SUPPOSITORY RC PRN (02:15)
[2020-02-26] MEDS ORDERED: SODIUM CHLORIDE 0.9% 1000ML 1,000 ML IV SCH (02:15)
[2020-02-26] MEDS ORDERED: DEXTROSE 50%-WATER 50 ML DISP.SYRIN IV PRN (02:15)
[2020-02-26 02:49] LABS: APPEARANCE,URINE Cloudy (CLEAR); BILIRUBIN,URINE Small (NEGATIVE); COLOR,URINE Dark Yellow (YELLOW); GLUCOSE, URINE (UA) Negative (NEGATIVE); KETONES,URINE Trace mg/dL (NEGATIVE); LEUKOCYTE ESTERASE ,URINE Trace (NEGATIVE); NITRATE,URINE Negative (NEGATIVE); OCCULT BLOOD,URINE Negative (NEGATIVE); PH,URINE 6.5 (5.0-8.0); PROTEIN,URINE 300 mg/dL (NEGATIVE)
[2020-02-26 03:02] LABS: BACTERIA,URINE Moderate /HPF (None Seen); RBC,URINE 0-1 /HPF (0-1)
[2020-02-26 03:03] LABS: OTHER CASTS, URINE WBC CASTS 1+ /LPF (None Seen)
[2020-02-26] MEDS ORDERED: VASOPRESSIN 20 UNITS/NS 100ML IV SCH ×2 (04:15)
[2020-02-26] MEDS: SODIUM BICARB 8.4% 50ML SYRINGE IVP SCH (04:15)
[2020-02-26 04:27] LABS: EOSINOPHILS % (AUTO) 1.7 % (0.0-8.0); HEMATOCRIT 40.6 % (42-54); LYMPHOCYTES % (AUTO) 10.4 % (21.0-51.0); MEAN CORPUSCULAR HEMOGLOBIN 27.4 pg (27.0-33.0); MEAN CORPUSCULAR HGB CONC 33.7 g/dL (32.0-36.0); MEAN CORPUSCULAR VOLUME 81.2 fL (79-99); MONOCYTES % (AUTO) 11.1 % (3.0-13.0); NEUTROPHILS % (AUTO) 76.4 % (40.0-77.0); PLATELET COUNT (AUTO) 166 K/uL (130-400); RED CELL DISTRIBUTION WIDTH 15.4 % (11.0-15.5); WHITE BLOOD COUNT (AUTO) 8.1 K/uL (4.8-10.8)
[2020-02-26 04:40] LABS: CREATININE 1.6 mg/dL (0.5-1.5); POTASSIUM 4.7 mmol/L (3.5-5.1)
[2020-02-26 04:42] LABS: INR 1.65 (0.85-1.15); PARTIAL THROMBOPLASTIN TIME 30.3 SEC (26.3-35.5); PROTHROMBIN TIME 17.5 SEC (9.6-11.6)
[2020-02-26 04:44] LABS: ALBUMIN 2.7 g/dL (3.5-5.0); BILIRUBIN,TOTAL 3.3 mg/dL (0.2-1.0); MAGNESIUM 2.3 mg/dL (1.80-2.40); PHOSPHORUS 6.3 mg/dL (2.5-4.9); TOTAL PROTEIN, SERUM 5.5 g/dL (6.0-8.3)
[2020-02-26] MEDS ORDERED: NOREPINEPHRINE BITARTRATE 1 MG/1 ML ML IV ONE (05:30)
[2020-02-26] MEDS ORDERED: SODIUM CHLORIDE 0.9% 250 ML IV ONE (05:31)
[2020-02-26] MEDS: INSULIN R NPO SSI SQ SCH ×4 (06:00→23:36)
[2020-02-26] MEDS: ZOSYN 3.375GM+NS 50ML 50 ML IV SCH ×3 (06:03→21:14)
[2020-02-26] MEDS ORDERED: FURO40TA5 PO (06:25)
[2020-02-26] MEDS ORDERED: AEC81 PO (06:25)
[2020-02-26] MEDS ORDERED: FOLI0.4T2 PO (06:25)
[2020-02-26] MEDS ORDERED: ACET-2743 PO (06:25)
[2020-02-26] MEDS ORDERED: ATOR-2 PO (06:25)
[2020-02-26] MEDS ORDERED: MULT-248 PO (06:25)
[2020-02-26 06:53] LABS: ABG BASE EXCESS -4.3 mmol/L (-2.0-3.0); ABG HCO3 18.1 mmol/L (21.0-28.0); ABG OXYGEN SATURATION 97.4 % (95.0-99.0); ABG PCO2 27 mmHg (35-48)
[2020-02-26] MEDS: PANTOPRAZOLE 40 MG/VIAL IVP SCH (08:53)
[2020-02-26 11:20] LABS: CHLORIDE,URINE RANDOM < 24 mmol/L (110-250); POTASSIUM,URINE RANDOM 65 mmol/L (25-125); SODIUM,URINE RANDOM 19 mmol/l (40-220)
[2020-02-26 11:21] LABS: PROTEIN,URINE RANDOM 29.9 mg/dL (0-11.9)
--- NOTE | 2020-02-26 12:10 | NUR ---
DR FLANAGAN MADE AWARE OF CONSULT. STATES THAT HE WILL NOT SEE PATIENT UNLESS THE HIDA SCAN CONFIRMS THAT THERE IS A LEAK.
[2020-02-26] MEDS ORDERED: MILRINONE-D5W 20 MG/100 ML 100 ML IV SCH (13:15)
--- NOTE | 2020-02-26 13:49 | NUR ---
cm note spoke to patient and states resides at home with spouse and with son. independent with adls and ambulation, no dme. states dc plan is back to home at time of dc. no dc needs. Addendum: 02/26/20 at 1353 by DWAINE DACOSTA CM Amended: Links added.
[2020-02-26] MEDS ORDERED: HYDROCORTISONE SOD SUCCINATE 100 MG/2 ML VIAL IM SCH (14:00)
--- NOTE | 2020-02-26 14:30 | NUR ---
PATIENT C/O PAIN TO LEFT ARM AND HAND. ARM IS SWOLLEN. PIV TO L WRIST HAS GOOD BLOOD RETURN AND IS EASY TO FLUSH. BLOOD PRESSURE CUFF MOVED TO RIGHT ARM AND MEDICATIONS CHANGED TO RIGHT PIV. PICC TO BE PLACED WITHIN THE HOUR.
[2020-02-26] MEDS: DOBUTAMINE 250MG/D5 250ML 250 ML IV SCH ×2 (18:02→23:16)
[2020-02-26 19:22] LABS: CREATININE 1.5 mg/dL (0.5-1.5); POTASSIUM 4.6 mmol/L (3.5-5.1)
[2020-02-26] MEDS ORDERED: HYDROCORTISONE SOD SUCCINATE 100 MG/2 ML VIAL IV SCH (20:00)
[2020-02-27] VITALS (14 sets, daily range): BP systolic 103–120; BP diastolic 35–49
[2020-02-27] MEDS: SODIUM BICARB 8.4% 50ML SYRINGE IVP SCH (01:21)
[2020-02-27 03:52] LABS: HEMATOCRIT 39.9 % (42-54); MEAN CORPUSCULAR HEMOGLOBIN 26.9 pg (27.0-33.0); MEAN CORPUSCULAR HGB CONC 33.1 g/dL (32.0-36.0); MEAN CORPUSCULAR VOLUME 81.4 fL (79-99); NUCLEATED RED BLOOD CELLS 0.4 % (0.0-0.19); PLATELET COUNT (AUTO) 174 K/uL (130-400); RED CELL DISTRIBUTION WIDTH 15.4 % (11.0-15.5); WHITE BLOOD COUNT (AUTO) 8.4 K/uL (4.8-10.8)
[2020-02-27 04:12] LABS: ALBUMIN 2.3 g/dL (3.5-5.0); BILIRUBIN,DIRECT 1.1 mg/dL (0.0-0.3); BILIRUBIN,TOTAL 2.9 mg/dL (0.2-1.0); CREATININE 1.4 mg/dL (0.5-1.5); POTASSIUM 4.2 mmol/L (3.5-5.1); TOTAL PROTEIN, SERUM 4.9 g/dL (6.0-8.3)
[2020-02-27] MEDS: ZOSYN 3.375GM+NS 50ML 50 ML IV SCH ×3 (05:13→22:12)
[2020-02-27] MEDS: INSULIN R NPO SSI SQ SCH ×3 (05:48→18:00)
[2020-02-27] MEDS: PANTOPRAZOLE 40 MG/VIAL IVP SCH (09:36)
[2020-02-27] MEDS ORDERED: SODIUM CHLORIDE 0.9% 1000ML 1,000 ML IV ONE (13:15)
[2020-02-27] MEDS: DOBUTAMINE 250MG/D5 250ML 250 ML IV SCH (15:09)
[2020-02-27] MEDS: HEPARIN SODIUM 5000UNIT/ML 1ML VIAL SQ SCH (16:35)
[2020-02-27] MEDS ORDERED: MORPHINE SULFATE 4 MG/1ML SYG IVP PRN (18:15)
[2020-02-28] VITALS (7 sets, daily range): BP systolic 115–121; BP diastolic 48–56
[2020-02-28] MEDS: SODIUM BICARB 8.4% 50ML SYRINGE IVP SCH (02:24)
[2020-02-28 03:46] LABS: HEMATOCRIT 35.9 % (42-54); MEAN CORPUSCULAR HGB CONC 32.6 g/dL (32.0-36.0); MEAN CORPUSCULAR VOLUME 82.9 fL (79-99); PLATELET COUNT (AUTO) 147 K/uL (130-400); RED BLOOD CELL COUNT(AUTO) 4.33 MIL/uL (4.50-6.20); RED CELL DISTRIBUTION WIDTH 15.6 % (11.0-15.5); WHITE BLOOD COUNT (AUTO) 6.9 K/uL (4.8-10.8)
[2020-02-28 04:06] LABS: ALBUMIN 1.9 g/dL (3.5-5.0); CREATININE 1.1 mg/dL (0.5-1.5); MAGNESIUM 1.9 mg/dL (1.80-2.40); PHOSPHORUS 2.8 mg/dL (2.5-4.9); POTASSIUM 3.4 mmol/L (3.5-5.1)
[2020-02-28] MEDS: DOBUTAMINE 250MG/D5 250ML 250 ML IV SCH ×2 (04:20→16:48)
[2020-02-28] MEDS: HEPARIN SODIUM 5000UNIT/ML 1ML VIAL SQ SCH ×2 (04:32→14:42)
[2020-02-28] MEDS: INSULIN R NPO SSI SQ SCH ×3 (06:00→11:31)
[2020-02-28] MEDS: ZOSYN 3.375GM+NS 50ML 50 ML IV SCH ×3 (06:38→22:06)
[2020-02-28] MEDS: POTASSIUM CHLORIDE 20MEQ/100ML 100 ML IV PRN (06:38)
[2020-02-28] MEDS: PANTOPRAZOLE 40 MG/VIAL IVP SCH (08:23)
--- NOTE | 2020-02-28 09:30 | NUR ---
DESTINI LYON,CECILIA, IN ROOM SPEAKING WITH PT. RE:PLAN OF CARE. QUESTIONS ANSWERED BY WATER TREATMENT OPERATOR, PT. VERBALIZED UNDERSTANDING.
--- NOTE | 2020-02-28 11:55 | NUR ---
DR. Tiffany SAMSON IN ROOM ASSESSING/SPEAKING WITH PT. RE:PLAN OF CARE. QUESTIONS ANSWERED, PT. VERBALIZED UNDERSTANDING.
[2020-02-28] MEDS: INSULIN HUMULIN R 100 UNIT/ML 3ML SQ SCH ×2 (16:02→20:49)
[2020-02-28] MEDS: MAGNESIUM 2GM PREMIX 50ML 50 ML IV SCH (16:43)
[2020-02-29] MEDS: HEPARIN SODIUM 5000UNIT/ML 1ML VIAL SQ SCH ×2 (03:23→16:15)
--- NOTE | 2020-02-29 04:00 | NUR ---
PATIENT UPDATE Pt comfortable overnight, no complaints of chest pain, no shortness of breath. Continues with the Dobutamine drip at 33mcg/kg/min. Blood pressure stable, gets up to the restroom to void, not in any form of distress.
[2020-02-29 04:06] VITALS: BP 126/54
[2020-02-29 04:36] LABS: HEMATOCRIT 37.1 % (42-54); MEAN CORPUSCULAR HGB CONC 32.3 g/dL (32.0-36.0); MEAN CORPUSCULAR VOLUME 83.6 fL (79-99); PLATELET COUNT (AUTO) 138 K/uL (130-400); RED BLOOD CELL COUNT(AUTO) 4.44 MIL/uL (4.50-6.20); RED CELL DISTRIBUTION WIDTH 15.7 % (11.0-15.5); WHITE BLOOD COUNT (AUTO) 7.1 K/uL (4.8-10.8)
[2020-02-29 04:49] LABS: INR 1.13 (0.85-1.15); PROTHROMBIN TIME 12.1 SEC (9.6-11.6)
[2020-02-29 04:52] LABS: ALBUMIN 2.4 g/dL (3.5-5.0); BILIRUBIN,TOTAL 3.2 mg/dL (0.2-1.0); CREATININE 1.2 mg/dL (0.5-1.5); MAGNESIUM 2.6 mg/dL (1.80-2.40); PHOSPHORUS 2.8 mg/dL (2.5-4.9); POTASSIUM 3.9 mmol/L (3.5-5.1); TOTAL PROTEIN, SERUM 5.1 g/dL (6.0-8.3)
[2020-02-29] MEDS: ZOSYN 3.375GM+NS 50ML 50 ML IV SCH ×3 (06:07→21:21)
[2020-02-29 07:00] VITALS: BP 119/61
[2020-02-29] MEDS: INSULIN HUMULIN R 100 UNIT/ML 3ML SQ SCH ×4 (07:12→21:00)
[2020-02-29] MEDS: PANTOPRAZOLE SODIUM 40 MG TABLET.DR PO SCH (08:26)
[2020-02-29 11:30] VITALS: BP 121/59
--- NOTE | 2020-02-29 15:20 | NUR ---
Spoke to by phone regarding follow up for cardiology consult from 02/26/2020. Made MD aware that pt had been seen by on 02/26/2020 with documentation that would assume care of pt 02/27/2020. stated that he had not been notified of need to assume care. made aware of pt location.
[2020-02-29 15:30] VITALS: BP 124/62
[2020-02-29 19:43] VITALS: BP 122/57
[2020-03-01] VITALS (19 sets, daily range): BP systolic 102–128; BP diastolic 49–88
[2020-03-01] MEDS: HEPARIN SODIUM 5000UNIT/ML 1ML VIAL SQ SCH ×2 (03:15→15:56)
[2020-03-01] MEDS: ZOSYN 3.375GM+NS 50ML 50 ML IV SCH ×3 (06:00→20:49)
[2020-03-01] MEDS: INSULIN HUMULIN R 100 UNIT/ML 3ML SQ SCH ×4 (07:23→20:47)
[2020-03-01] MEDS ORDERED: PROPOFOL 10 MG/ML 20ML VIAL IV ONE (10:10)
[2020-03-01] MEDS: PANTOPRAZOLE SODIUM 40 MG TABLET.DR PO SCH (11:28)
[2020-03-02] VITALS (7 sets, daily range): BP systolic 118–129; BP diastolic 57–67
[2020-03-02] MEDS: HEPARIN SODIUM 5000UNIT/ML 1ML VIAL SQ SCH ×2 (04:04→13:52)
[2020-03-02] MEDS: ZOSYN 3.375GM+NS 50ML 50 ML IV SCH ×3 (05:23→21:28)
[2020-03-02 05:50] LABS: HEMATOCRIT 43.1 % (42-54); MEAN CORPUSCULAR HEMOGLOBIN 27.5 pg (27.0-33.0); MEAN CORPUSCULAR HGB CONC 32.7 g/dL (32.0-36.0); NUCLEATED RED BLOOD CELLS 0.2 % (0.0-0.19); PLATELET COUNT (AUTO) 152 K/uL (130-400); RED BLOOD CELL COUNT(AUTO) 5.13 MIL/uL (4.50-6.20); RED CELL DISTRIBUTION WIDTH 16.3 % (11.0-15.5)
[2020-03-02 06:25] LABS: BILIRUBIN,TOTAL 5.2 mg/dL (0.2-1.0); CREATININE 1.4 mg/dL (0.5-1.5); MAGNESIUM 2.3 mg/dL (1.80-2.40); POTASSIUM 5.1 mmol/L (3.5-5.1); TOTAL PROTEIN, SERUM 6.2 g/dL (6.0-8.3)
[2020-03-02] MEDS: INSULIN HUMULIN R 100 UNIT/ML 3ML SQ SCH ×4 (07:04→21:00)
--- NOTE | 2020-03-02 07:35 | NUR ---
ASSESSMENT ENCOUNTERED PT A&OX3, CALM COOPERATIVE AND DOES NOT APPEAR TO BE IN ANY DISTRESS NOR ANY NEURO DEFICITS PRESENT. PT DENIES PAIN, SOB, NAUSEA. PICC LINE TO ELISEO WITH PORTS PATENT, PT IS AMBULATORY, GAIT STEADY AND STRONG WITH STAND BY ASSIST. CALL LIGHT WITHIN REACH.
[2020-03-02] MEDS: PANTOPRAZOLE SODIUM 40 MG TABLET.DR PO SCH (09:07)
[2020-03-02 17:03] LABS: AMYLASE 35 U/L (25-115); CREATINE KINASE, TOTAL 63 U/L (21-232); LIPASE 79 U/L (114-286)
[2020-03-03 03:42] VITALS: BP 122/63
[2020-03-03] MEDS: HEPARIN SODIUM 5000UNIT/ML 1ML VIAL SQ SCH ×2 (03:42→19:13)
[2020-03-03 04:40] LABS: BASOPHILS % (AUTO) 0.1 % (0.0-5.0); EOSINOPHILS % (AUTO) 0.2 % (0.0-8.0); HEMATOCRIT 40.7 % (42-54); LYMPHOCYTES % (AUTO) 26.3 % (21.0-51.0); MEAN CORPUSCULAR HEMOGLOBIN 26.7 pg (27.0-33.0); MEAN CORPUSCULAR HGB CONC 31.7 g/dL (32.0-36.0); MEAN CORPUSCULAR VOLUME 84.1 fL (79-99); MONOCYTES % (AUTO) 15.1 % (3.0-13.0); NEUTROPHILS % (AUTO) 57.8 % (40.0-77.0); NUCLEATED RED BLOOD CELLS 0.4 % (0.0-0.19); PLATELET COUNT (AUTO) 135 K/uL (130-400); RED BLOOD CELL COUNT(AUTO) 4.84 MIL/uL (4.50-6.20); RED CELL DISTRIBUTION WIDTH 16.4 % (11.0-15.5); WHITE BLOOD COUNT (AUTO) 8.5 K/uL (4.8-10.8)
[2020-03-03 04:56] LABS: INR 1.98 (0.85-1.15); PROTHROMBIN TIME 20.8 SEC (9.6-11.6)
[2020-03-03 05:18] LABS: ALBUMIN 2.8 g/dL (3.5-5.0); BILIRUBIN,DIRECT 2.5 mg/dL (0.0-0.3); BILIRUBIN,TOTAL 5.2 mg/dL (0.2-1.0); CREATININE 1.5 mg/dL (0.5-1.5); POTASSIUM 4.7 mmol/L (3.5-5.1); TOTAL PROTEIN, SERUM 5.9 g/dL (6.0-8.3)
[2020-03-03] MEDS: ZOSYN 3.375GM+NS 50ML 50 ML IV SCH ×3 (05:33→21:11)
[2020-03-03] MEDS: INSULIN HUMULIN R 100 UNIT/ML 3ML SQ SCH ×4 (05:44→21:00)
[2020-03-03 07:30] VITALS: BP 118/66
[2020-03-03 11:30] VITALS: BP 110/59
[2020-03-03] MEDS: PANTOPRAZOLE SODIUM 40 MG TABLET.DR PO SCH (14:54)
[2020-03-03 15:30] VITALS: BP 114/61
--- NOTE | 2020-03-03 17:54 | NUR ---
0815 transfer request to acute transplant center [facility] [address] to intake nurse [phone] and information fax [phone]. 1510 records received and being reviewed by putty and caulking supervisor. 1620 call received requesting face sheet and fax. 1723 call received from intake nurse Jory physician denial not an appropriate transfer, no accepting physician primary nurse made aware. Christo couch
[2020-03-03 20:10] VITALS: BP 120/57
[2020-03-03 23:30] VITALS: BP 115/56
--- NOTE | 2020-03-04 04:00 | NUR ---
Patient a/ox3. Denies chest pain or sob. Jaundice in color. 2+ pitting edema to BLE. Patient states he has not voided throughout the day. Bladder scanner showed 55ml in bladder at 2100. Tolerating zosyn. Following fluid restriction. Will continue to monitor. Waiting for transfer approval.
[2020-03-04 04:05] VITALS: BP 121/58
[2020-03-04 04:26] LABS: HEMATOCRIT 41.6 % (42-54); MEAN CORPUSCULAR HEMOGLOBIN 27.7 pg (27.0-33.0); MEAN CORPUSCULAR HGB CONC 33.4 g/dL (32.0-36.0); NUCLEATED RED BLOOD CELLS 0.6 % (0.0-0.19); PLATELET COUNT (AUTO) 111 K/uL (130-400); RED BLOOD CELL COUNT(AUTO) 5.01 MIL/uL (4.50-6.20); RED CELL DISTRIBUTION WIDTH 16.5 % (11.0-15.5); WHITE BLOOD COUNT (AUTO) 8.2 K/uL (4.8-10.8)
[2020-03-04] MEDS: ZOSYN 3.375GM+NS 50ML 50 ML IV SCH ×3 (04:27→21:37)
[2020-03-04 04:36] LABS: INR 1.83 (0.85-1.15); PROTHROMBIN TIME 19.3 SEC (9.6-11.6)
[2020-03-04 04:45] LABS: BAND NEUTROPHILS % (MANUAL) 6 % (0-2); LYMPHOCYTES % (MANUAL) 12 % (22-44); MAN.DIFF COMMENT-IMPRESSION MANUAL DIFFERENTIAL; MONOCYTES % (MANUAL) 10 % (2-9); PLATELET MORPHOLOGY COMMENT SLIGHTLY DECREASED; SEGMENTED NEUTROPHILS % 72 % (40-70)
[2020-03-04 04:51] LABS: ABG BASE EXCESS -1.1 mmol/L (-2.0-3.0); ABG HCO3 20.8 mmol/L (21.0-28.0); ABG OXYGEN SATURATION 97.6 % (95.0-99.0); ABG PCO2 28 mmHg (35-48)
[2020-03-04 04:57] LABS: ALBUMIN 2.8 g/dL (3.5-5.0); BILIRUBIN,TOTAL 4.6 mg/dL (0.2-1.0); CARBON DIOXIDE 23 mmol/L (21-32); CHLORIDE 96 mmol/L (101-111); CREATININE 1.4 mg/dL (0.5-1.5); GAMMA GLUTAMYL TRANSFERASE 87 U/L (5-85); GLOMERULAR FILTR. RATE CALC 58 mL/min (>60); GLUCOSE,RANDOM 80 mg/dL (70-105); POTASSIUM 4.3 mmol/L (3.5-5.1); SODIUM SERUM 131 mmol/L (136-145); TOTAL PROTEIN, SERUM 5.7 g/dL (6.0-8.3); UREA NITROGEN, BLOOD 34 mg/dL (7-18)
[2020-03-04 05:10] LABS: ALANINE AMINOTRANSFERASE 1686 U/L (12-78); ASPARTATE AMINOTRANSFERASE 1116 U/L (10-37)
[2020-03-04 05:46] LABS: ACETAMINOPHEN < 1 mcg/mL (10-29)
[2020-03-04] MEDS: INSULIN HUMULIN R 100 UNIT/ML 3ML SQ SCH ×4 (05:49→21:00)
[2020-03-04 08:00] VITALS: BP 121/60
[2020-03-04] MEDS: HEPARIN SODIUM 5000UNIT/ML 1ML VIAL SQ SCH ×2 (09:00→21:00)
[2020-03-04] MEDS: PANTOPRAZOLE SODIUM 40 MG TABLET.DR PO SCH (11:00)
[2020-03-04 11:52] VITALS: BP 122/59
[2020-03-04 16:00] VITALS: BP 111/60
--- NOTE | 2020-03-04 19:53 | NUR ---
[address] to [facility] [phone] intake nurse, information provided which including Dr Rockwell cell number for 1:1 report. 1731 call back with a denial from Casting Operator after talking to Dr Erickson for liver transplant. pt does not meet criteria for transplant do to EF less 20 % but will be consider for consult for medical management. as per intake nurse Dr Rockwell will follow up in am with lab work then will follow up . Christo couch
[2020-03-04 20:38] VITALS: BP 107/59
[2020-03-04 23:50] VITALS: BP 119/60
[2020-03-05 03:57] VITALS: BP 122/63
[2020-03-05] MEDS: ZOSYN 3.375GM+NS 50ML 50 ML IV SCH ×3 (05:56→22:10)
[2020-03-05] MEDS: INSULIN HUMULIN R 100 UNIT/ML 3ML SQ SCH ×4 (05:56→20:37)
--- NOTE | 2020-03-05 06:45 | NUR ---
ORDERS CALLED [facility] TO NOTIFY PATIENT HAD NOT PUT OUT ANY URINE IN 24 HOURS. PATIENT REFUSED ZOSYN. DOES NOT WANT ANY MORE FLUID INTAKE. PER [facility] ORDER LABS STAT. Addendum: 03/05/20 at 0721 by BARRY FONSECA RN RN ALSO INFORMED MD ABOUT 3+ PITTING EDEMA
[2020-03-05 07:13] LABS: HEMATOCRIT 41.8 % (42-54); MEAN CORPUSCULAR HEMOGLOBIN 26.6 pg (27.0-33.0); MEAN CORPUSCULAR HGB CONC 32.3 g/dL (32.0-36.0); MEAN CORPUSCULAR VOLUME 82.3 fL (79-99); NUCLEATED RED BLOOD CELLS 0.5 % (0.0-0.19); PLATELET COUNT (AUTO) 114 K/uL (130-400); RED BLOOD CELL COUNT(AUTO) 5.08 MIL/uL (4.50-6.20); RED CELL DISTRIBUTION WIDTH 16.5 % (11.0-15.5)
[2020-03-05 07:37] LABS: CREATININE 1.2 mg/dL (0.5-1.5); POTASSIUM 4.2 mmol/L (3.5-5.1)
[2020-03-05 07:53] VITALS: BP 125/62
[2020-03-05 08:18] LABS: B-TYPE NATRIURETIC PEPTIDE 2250 pg/mL (0-100)
[2020-03-05 08:24] LABS: ALBUMIN 2.8 g/dL (3.5-5.0); BILIRUBIN,DIRECT 2.7 mg/dL (0.0-0.3); BILIRUBIN,TOTAL 4.6 mg/dL (0.2-1.0); TOTAL PROTEIN, SERUM 5.9 g/dL (6.0-8.3)
[2020-03-05] MEDS: HEPARIN SODIUM 5000UNIT/ML 1ML VIAL SQ SCH ×2 (09:51→22:12)
[2020-03-05] MEDS: PANTOPRAZOLE SODIUM 40 MG TABLET.DR PO SCH (09:52)
[2020-03-05] MEDS: FUROSEMIDE 10 MG/ML 2ML VIAL IV SCH ×2 (09:52→22:10)
[2020-03-05 12:00] VITALS: BP 135/62
[2020-03-05 16:00] VITALS: BP 117/59
[2020-03-05 19:55] VITALS: BP 116/60
--- NOTE | 2020-03-05 20:40 | NUR ---
SL SHIFT ASSESSMENT DONE, PLEASE REFER TO CHART. SALINE LOCKED PICC LINE. PCP IN TO ASSIST PT TO SHOWER.
--- NOTE | 2020-03-05 22:10 | NUR ---
MEDS MOVED PT TO ANOTHER ROOM, 412 ROOM 405 IS NEEDED FOR A PT NEEDING A SITTER. DUE MEDS ADMINISTERED, TOLERATED WELL. KEPT RESTED AND COMFORTABLE IN BED. CALL LIGHT WITHIN REACH. WILL MONITOR PT.
[2020-03-05 23:28] VITALS: BP 116/61
--- NOTE | 2020-03-06 02:00 | NUR ---
ROUNDS PT RESTING WELL, NO DISTRESS NOTED. KEPT UNDISTURBED FOR NOW. WILL MONITOR PT.
[2020-03-06 04:11] VITALS: BP 118/65
[2020-03-06] MEDS: ZOSYN 3.375GM+NS 50ML 50 ML IV SCH ×3 (05:19→20:52)
--- NOTE | 2020-03-06 05:20 | NUR ---
DRAW PT ALREADY AWAKE. DENIES ANY CONCERNS AT THIS TIME. BLOOD DRAW DONE ON PICC LINE. BOTH PORTS FLUSHES WELL WITH GOOD BLOOD RETURN. BLOOD DRAWN THEN SENT TO LAB FOR ANALYSIS. DUE IV MIKE VAUGHAN. FOR MORE CARE.
[2020-03-06] MEDS: INSULIN HUMULIN R 100 UNIT/ML 3ML SQ SCH ×4 (06:00→20:52)
[2020-03-06 07:06] LABS: ALBUMIN 2.7 g/dL (3.5-5.0); BILIRUBIN,TOTAL 4.8 mg/dL (0.2-1.0); CREATININE 1.3 mg/dL (0.5-1.5); MAGNESIUM 1.9 mg/dL (1.80-2.40); POTASSIUM 4.1 mmol/L (3.5-5.1); TOTAL PROTEIN, SERUM 5.8 g/dL (6.0-8.3)
[2020-03-06 08:00] VITALS: BP 126/66
[2020-03-06] MEDS: PANTOPRAZOLE SODIUM 40 MG TABLET.DR PO SCH (08:24)
[2020-03-06] MEDS: FUROSEMIDE 10 MG/ML 2ML VIAL IV SCH ×2 (08:24→20:52)
[2020-03-06] MEDS: HEPARIN SODIUM 5000UNIT/ML 1ML VIAL SQ SCH ×2 (08:31→20:51)
[2020-03-06 09:10] LABS: HEPATITIS A ANTIBODY IGM Negative (Negative); HEPATITIS B CORE IGM Negative (Negative); HEPATITIS Bs ANTIGEN SCREEN P Negative (Negative)
[2020-03-06 11:00] VITALS: BP 120/61
--- NOTE | 2020-03-06 12:59 | NUR ---
RD SCREEN X 10 DAYS LOS Pt admitted with Hyponatremia, Sepsis. Pt with Liver cirrhosis, altered lab values (ALT 1334, AST 664, T. Bili 4.8). Pt with 75gm CCD, Good PO intake at 100%. No report of GI distress. LBM 03/05/20. Recommend modify to [facility] healthy diet. Noted Pt with moderate fluid retention (LUE 3+, BLE 2+ edema per EMR); Recommend monitor I/O. RD to continue to monitor. Addendum: 03/06/20 at [address] Amended: Links added.
[2020-03-06 16:00] VITALS: BP 114/65
[2020-03-06 20:36] VITALS: BP 116/55
[2020-03-07] VITALS (7 sets, daily range): BP systolic 100–119; BP diastolic 49–62
[2020-03-07 04:36] LABS: BASOPHILS % (AUTO) 0.2 % (0.0-5.0); EOSINOPHILS % (AUTO) 0.2 % (0.0-8.0); HEMATOCRIT 41.3 % (42-54); MEAN CORPUSCULAR HGB CONC 32.9 g/dL (32.0-36.0); MEAN CORPUSCULAR VOLUME 81.9 fL (79-99); MONOCYTES % (AUTO) 11.2 % (3.0-13.0); NEUTROPHILS % (AUTO) 63.8 % (40.0-77.0); NUCLEATED RED BLOOD CELLS 1.5 % (0.0-0.19); PLATELET COUNT (AUTO) 91 K/uL (130-400); RED BLOOD CELL COUNT(AUTO) 5.04 MIL/uL (4.50-6.20); RED CELL DISTRIBUTION WIDTH 16.4 % (11.0-15.5); WHITE BLOOD COUNT (AUTO) 6.6 K/uL (4.8-10.8)
[2020-03-07 04:53] LABS: INR 1.9 (0.85-1.15); PARTIAL THROMBOPLASTIN TIME 33.9 SEC (26.3-35.5)
[2020-03-07 05:09] LABS: ALBUMIN 2.8 g/dL (3.5-5.0); BILIRUBIN,DIRECT 3.4 mg/dL (0.0-0.3); BILIRUBIN,TOTAL 5.3 mg/dL (0.2-1.0); CREATININE 1.4 mg/dL (0.5-1.5); MAGNESIUM 2.2 mg/dL (1.80-2.40); POTASSIUM 3.8 mmol/L (3.5-5.1); TOTAL PROTEIN, SERUM 5.8 g/dL (6.0-8.3)
[2020-03-07 05:37] LABS: B-TYPE NATRIURETIC PEPTIDE 3390 pg/mL (0-100)
[2020-03-07] MEDS: INSULIN HUMULIN R 100 UNIT/ML 3ML SQ SCH ×4 (06:46→20:59)
--- NOTE | 2020-03-07 08:10 | NUR ---
NOTE PATIENT AWAKE ALERT. C/O SOB WITHOUT EXERTION. O2 SATURATION 98% ROOM AIR. HE IS SLIGHTLY JAUNDICE, SCLERA OF EYES JAUNDICE WELL. HAS 3+ PITTING EDEMA TO BLE. HAS PENILE EDEMA. HAS BEEN VOIDING SMALL AMOUNTS DESPITE DIURETICS BEING ADMINISTERED. LIVER ENZYMES HAVE BEEN IMPROVING FOR THE LAST FEW DAYS AND TRANSFER TO [facility] HAS NOT HAPPENED BECAUSE HE IS NOT A CANDIDATE FOR TRANSPLANT BECAUSE OF HIS EF <20% ON LAST 2D ECHO. PATIENT IS ANXIOUS AND DESPERATE BECAUSE HE SEES HIS CONDITION WORSENING. STATES HE CANNOT LAY DOWN FLAT TO SLEEP AND HAS TO BE WITH HOB ELEVATED THIS WHOLE TIME. I WILL READ UP ON CHART AND SPEAK TO DR LUJAN BECAUSE PATIENT HAS QUESTIONS FOR HIM AND NEEDS A WEB PUBLISHER.
[2020-03-07] MEDS: FOLIC ACID 0.4 MG PO SCH (09:00)
[2020-03-07] MEDS: PANTOPRAZOLE SODIUM 40 MG TABLET.DR PO SCH (10:11)
[2020-03-07] MEDS: FUROSEMIDE 10 MG/ML 2ML VIAL IV SCH ×2 (10:11→20:57)
[2020-03-07] MEDS: LISINOPRIL 2.5 MG TABLET PO SCH (10:11)
[2020-03-07] MEDS: CARVEDILOL 3.125 MG TABLET PO SCH ×3 (10:12→20:57)
[2020-03-07] MEDS: HEPARIN SODIUM 5000UNIT/ML 1ML VIAL SQ SCH ×2 (10:30→20:59)
--- NOTE | 2020-03-07 13:00 | NUR ---
TAI LUJAN MADE ROUNDS AND PATIENT HAD SOME QUESTIONS FOR HIM AND HAD CALLED ME WELL AND ASKED, BASICALLY, WHAT THE PLAN OF CARE WAS. STATES SHE HAS CALLED TO GET INFORMATION ABOUT HER AND GETS NO ANSWERS. I SPOKE TO HER AND ABOUT WHAT DR LUJAN PLANS TO DO NEXT: CONTINUE TO MONITOR LIVER ENZYMES CONTINUE TO DIURESE CALL DR LYNN FOR RECONSULT FOR HEART FAILURE EF<20% ADD ANOTHER DIURETIC FOR NOW RESUME ANTIDEPRESSANT PATIENT AND AWARE OF THIS. I WILL WRITE THIS ON THE BOARD ALONG WITH DAILY WEIGHT, LIVER ENZYME RESULTS ETC SO PATIENT HAS SOMETHING TO REFER TO WHEN HE ASKS QUESTIONS REGARDING HIS PLAN OF CARE AND FOLLOW UP ON HIS RESULTS THIS WAY ALLOWING HIM TO PARTICIPATE ON HIS CARE.
[2020-03-07] MEDS: SPIRONOLACTONE 25 MG TAB PO SCH ×2 (13:48→20:57)
[2020-03-07] MEDS: DULOXETINE HCL 30 MG CAP PO SCH ×2 (13:48→20:53)
--- NOTE | 2020-03-07 17:05 | NUR ---
NOTE SPOKE TO DR LYNN REGARDING RECONSULT FOR HEART FAILURE. I WENT OVER PATIENT'S LABS RESULTS AND OTHER STUDIES RESULTS AND WHAT HAS TRANSPIRED DURING HIS STAY AND HOW HE HAD SEVERE EDEMA BLE AND REPORTS FEELING SOB AND CANNOT LAY DOWN AT ALL TO SLEEP. RECEIVED ORDERS FOR FLUID RESTRICTION AND START HIM ON MILIDRONE IV DRIP. REFER TO CHART FOR DETAILS.
[2020-03-07] MEDS: MILRINONE-D5W 20 MG/100 ML 100 ML IV SCH (20:19)
[2020-03-08] MEDS: MILRINONE-D5W 20 MG/100 ML 100 ML IV SCH ×3 (02:25→20:38)
[2020-03-08 04:02] VITALS: BP 109/51
[2020-03-08] MEDS: INSULIN HUMULIN R 100 UNIT/ML 3ML SQ SCH ×4 (07:30→20:46)
[2020-03-08 08:00] VITALS: BP 109/66
[2020-03-08] MEDS: FOLIC ACID 0.4 MG PO SCH (09:00)
[2020-03-08] MEDS: PANTOPRAZOLE SODIUM 40 MG TABLET.DR PO SCH (09:54)
[2020-03-08] MEDS: LISINOPRIL 2.5 MG TABLET PO SCH (09:54)
[2020-03-08] MEDS: SPIRONOLACTONE 25 MG TAB PO SCH ×2 (09:54→20:41)
[2020-03-08] MEDS: DULOXETINE HCL 30 MG CAP PO SCH ×2 (09:54→20:41)
[2020-03-08] MEDS: CARVEDILOL 3.125 MG TABLET PO SCH ×2 (09:55→20:41)
[2020-03-08] MEDS: FUROSEMIDE 10 MG/ML 2ML VIAL IV SCH ×2 (09:55→22:41)
[2020-03-08] MEDS: HEPARIN SODIUM 5000UNIT/ML 1ML VIAL SQ SCH ×2 (09:56→20:43)
[2020-03-08 11:54] VITALS: BP 107/63
[2020-03-08 16:00] VITALS: BP 101/42
[2020-03-08 19:57] VITALS: BP 106/49
[2020-03-08 23:03] VITALS: BP 109/54
[2020-03-09 03:50] VITALS: BP 103/50
[2020-03-09 04:03] LABS: BASOPHILS % (AUTO) 0.2 % (0.0-5.0); EOSINOPHILS % (AUTO) 0.7 % (0.0-8.0); HEMATOCRIT 40.3 % (42-54); LYMPHOCYTES % (AUTO) 14.7 % (21.0-51.0); MEAN CORPUSCULAR HEMOGLOBIN 26.3 pg (27.0-33.0); MEAN CORPUSCULAR HGB CONC 33.3 g/dL (32.0-36.0); MEAN CORPUSCULAR VOLUME 79.2 fL (79-99); MONOCYTES % (AUTO) 10.3 % (3.0-13.0); NEUTROPHILS % (AUTO) 73.8 % (40.0-77.0); NUCLEATED RED BLOOD CELLS 0.5 % (0.0-0.19); PLATELET COUNT (AUTO) 68 K/uL (130-400); RED BLOOD CELL COUNT(AUTO) 5.09 MIL/uL (4.50-6.20); RED CELL DISTRIBUTION WIDTH 15.9 % (11.0-15.5); WHITE BLOOD COUNT (AUTO) 6.1 K/uL (4.8-10.8)
[2020-03-09 04:27] LABS: ALBUMIN 2.4 g/dL (3.5-5.0); BILIRUBIN,DIRECT 2.7 mg/dL (0.0-0.3); CREATININE 0.9 mg/dL (0.5-1.5); PHOSPHORUS 2.4 mg/dL (2.5-4.9); TOTAL PROTEIN, SERUM 5.2 g/dL (6.0-8.3)
[2020-03-09 04:36] LABS: B-TYPE NATRIURETIC PEPTIDE 653 pg/mL (0-100)
[2020-03-09 04:45] LABS: POTASSIUM 2.7 mmol/L (3.5-5.1)
[2020-03-09] MEDS: POTASSIUM CHLORIDE 20MEQ/100ML 100 ML IV PRN ×3 (05:09→09:32)
[2020-03-09] MEDS: MILRINONE-D5W 20 MG/100 ML 100 ML IV SCH ×2 (05:12→17:17)
[2020-03-09 05:18] LABS: INR 1.66 (0.85-1.15); PROTHROMBIN TIME 17.6 SEC (9.6-11.6)
[2020-03-09] MEDS: INSULIN HUMULIN R 100 UNIT/ML 3ML SQ SCH ×4 (06:52→21:00)
[2020-03-09] MEDS: HEPARIN SODIUM 5000UNIT/ML 1ML VIAL SQ SCH ×2 (07:09→21:12)
[2020-03-09 08:00] VITALS: BP 103/57
[2020-03-09] MEDS ORDERED: POTASSIUM CHLORIDE 10% ELIXIR 20 MEQ/15 ML UDCUP ONE (08:52)
[2020-03-09] MEDS: FOLIC ACID 0.4 MG PO SCH (09:00)
[2020-03-09] MEDS: SPIRONOLACTONE 25 MG TAB PO SCH ×2 (09:22→21:03)
[2020-03-09] MEDS: DULOXETINE HCL 30 MG CAP PO SCH ×2 (09:22→21:03)
[2020-03-09] MEDS: LISINOPRIL 2.5 MG TABLET PO SCH (09:23)
[2020-03-09] MEDS: CARVEDILOL 3.125 MG TABLET PO SCH ×2 (09:23→21:04)
[2020-03-09] MEDS: PANTOPRAZOLE SODIUM 40 MG TABLET.DR PO SCH (09:23)
[2020-03-09] MEDS: FUROSEMIDE 10 MG/ML 2ML VIAL IV SCH ×2 (09:23→21:05)
[2020-03-09 11:00] VITALS: BP 105/55
[2020-03-09 16:00] VITALS: BP 94/51
[2020-03-09 20:08] VITALS: BP 104/54
[2020-03-09] MEDS: POTASSIUM CHLORIDE 10% ELIXIR 20 MEQ/15 ML UDCUP PO SCH (21:03)
[2020-03-09 23:48] VITALS: BP 102/52
[2020-03-10 04:04] VITALS: BP 98/52
[2020-03-10 05:23] LABS: ALBUMIN 2.5 g/dL (3.5-5.0); BILIRUBIN,DIRECT 2.6 mg/dL (0.0-0.3); BILIRUBIN,TOTAL 4.2 mg/dL (0.2-1.0); CREATININE 0.8 mg/dL (0.5-1.5); MAGNESIUM 2.5 mg/dL (1.80-2.40); PHOSPHORUS 2.5 mg/dL (2.5-4.9); TOTAL PROTEIN, SERUM 5.4 g/dL (6.0-8.3)
[2020-03-10] MEDS: INSULIN HUMULIN R 100 UNIT/ML 3ML SQ SCH ×4 (06:59→21:00)
[2020-03-10 08:00] VITALS: BP 110/55
[2020-03-10] MEDS: HEPARIN SODIUM 5000UNIT/ML 1ML VIAL SQ SCH ×2 (08:19→21:00)
[2020-03-10] MEDS: POTASSIUM CHLORIDE 10% ELIXIR 20 MEQ/15 ML UDCUP PO SCH ×2 (08:47→20:57)
[2020-03-10] MEDS: LISINOPRIL 2.5 MG TABLET PO SCH (08:48)
[2020-03-10] MEDS: DULOXETINE HCL 30 MG CAP PO SCH ×2 (08:48→20:57)
[2020-03-10] MEDS: SPIRONOLACTONE 25 MG TAB PO SCH ×2 (08:48→20:57)
[2020-03-10] MEDS: PANTOPRAZOLE SODIUM 40 MG TABLET.DR PO SCH (08:48)
[2020-03-10] MEDS: CARVEDILOL 3.125 MG TABLET PO SCH ×2 (08:49→20:57)
[2020-03-10] MEDS: FOLIC ACID 0.4 MG PO SCH (08:49)
[2020-03-10] MEDS: MILRINONE-D5W 20 MG/100 ML 100 ML IV SCH ×2 (08:54→20:58)
[2020-03-10] MEDS: FUROSEMIDE 10 MG/ML 2ML VIAL IV SCH ×2 (08:57→20:58)
[2020-03-10 16:00] VITALS: BP 100/50
[2020-03-10 20:20] VITALS: BP 100/52
[2020-03-11] VITALS (7 sets, daily range): BP systolic 101–110; BP diastolic 51–60
[2020-03-11 04:18] LABS: ALBUMIN 2.6 g/dL (3.5-5.0); BILIRUBIN,TOTAL 3.7 mg/dL (0.2-1.0); CREATININE 0.9 mg/dL (0.5-1.5); MAGNESIUM 1.9 mg/dL (1.80-2.40); PHOSPHORUS 2.6 mg/dL (2.5-4.9); POTASSIUM 4.2 mmol/L (3.5-5.1); TOTAL PROTEIN, SERUM 5.8 g/dL (6.0-8.3)
[2020-03-11] MEDS: MAGNESIUM 2GM PREMIX 50ML 50 ML IV SCH (06:09)
[2020-03-11] MEDS: MILRINONE-D5W 20 MG/100 ML 100 ML IV SCH ×3 (06:10→21:04)
[2020-03-11] MEDS: INSULIN HUMULIN R 100 UNIT/ML 3ML SQ SCH ×4 (06:10→21:00)
[2020-03-11] MEDS: FOLIC ACID 0.4 MG PO SCH (09:00)
[2020-03-11] MEDS: PANTOPRAZOLE SODIUM 40 MG TABLET.DR PO SCH (09:03)
[2020-03-11] MEDS: DULOXETINE HCL 30 MG CAP PO SCH ×2 (09:03→21:02)
[2020-03-11] MEDS: LISINOPRIL 2.5 MG TABLET PO SCH (09:03)
[2020-03-11] MEDS: CARVEDILOL 3.125 MG TABLET PO SCH ×2 (09:04→21:02)
[2020-03-11] MEDS: FUROSEMIDE 10 MG/ML 2ML VIAL IV SCH ×2 (09:05→21:03)
[2020-03-11] MEDS: SPIRONOLACTONE 25 MG TAB PO SCH ×2 (09:07→21:01)
[2020-03-11] MEDS: POTASSIUM CHLORIDE 10% ELIXIR 20 MEQ/15 ML UDCUP PO SCH ×2 (09:09→21:02)
[2020-03-11] MEDS: HEPARIN SODIUM 5000UNIT/ML 1ML VIAL SQ SCH ×2 (09:17→21:11)
--- NOTE | 2020-03-11 19:19 | NUR ---
HAND OFF REPORT GIVEN TO ULISES GODFREY RN
[2020-03-12 04:27] LABS: ALBUMIN 2.8 g/dL (3.5-5.0); BILIRUBIN,TOTAL 3.6 mg/dL (0.2-1.0); CREATININE 0.9 mg/dL (0.5-1.5); MAGNESIUM 2.2 mg/dL (1.80-2.40); POTASSIUM 4.2 mmol/L (3.5-5.1); TOTAL PROTEIN, SERUM 6.1 g/dL (6.0-8.3)
[2020-03-12 05:24] VITALS: BP 98/49
[2020-03-12] MEDS: INSULIN HUMULIN R 100 UNIT/ML 3ML SQ SCH ×4 (06:40→21:00)
[2020-03-12 07:00] VITALS: BP 96/51
[2020-03-12] MEDS: HEPARIN SODIUM 5000UNIT/ML 1ML VIAL SQ SCH (09:00)
[2020-03-12] MEDS: POTASSIUM CHLORIDE 10% ELIXIR 20 MEQ/15 ML UDCUP PO SCH ×2 (09:08→21:13)
[2020-03-12] MEDS: PANTOPRAZOLE SODIUM 40 MG TABLET.DR PO SCH (09:08)
[2020-03-12] MEDS: SPIRONOLACTONE 25 MG TAB PO SCH ×2 (09:08→21:12)
[2020-03-12] MEDS: DULOXETINE HCL 30 MG CAP PO SCH ×2 (09:09→21:12)
[2020-03-12] MEDS: CARVEDILOL 3.125 MG TABLET PO SCH ×2 (09:09→21:12)
[2020-03-12] MEDS: LISINOPRIL 2.5 MG TABLET PO SCH (09:09)
[2020-03-12] MEDS: FUROSEMIDE 10 MG/ML 2ML VIAL IV SCH (09:10)
[2020-03-12] MEDS: FOLIC ACID 0.4 MG PO SCH (09:14)
[2020-03-12] MEDS: MILRINONE-D5W 20 MG/100 ML 100 ML IV SCH ×2 (09:19→17:45)
[2020-03-12 09:44] LABS: CREATININE 0.9 mg/dL (0.5-1.5); POTASSIUM 4.3 mmol/L (3.5-5.1)
[2020-03-12 11:00] VITALS: BP 101/55
[2020-03-12 15:00] VITALS: BP 101/52
--- NOTE | 2020-03-12 15:45 | NUR ---
RD FOLLOW UP NOTE Noted, Pt with Clear Liquid diet >4 days; Increased malnutrition risk. Fluid 0500mL. Good clear liquid intake. I/O: 1774/4525mL. Lasix in place. BNP 704. Pt refusal of solids at this time, per MD note. Nausea, decreased appetite. Recommend 60mL Promod BID. Recommend advance diet as tolerated to Heart Healthy Diet, as medically feasible. RD to continue to monitor. Please notify as additional nutrition concerns arise. Thank you. Addendum: 03/12/20 at [address] Amended: Links added.
[2020-03-12] MEDS ORDERED: SODIUM CHLORIDE 0.9% 250 ML IV SCH ×2 (16:50→17:00)
[2020-03-12 20:00] VITALS: BP 106/51
[2020-03-12] MEDS: FUROSEMIDE 20 MG TABLET PO SCH (21:12)
[2020-03-12 23:45] VITALS: BP 105/56
[2020-03-13 04:00] VITALS: BP 104/55
[2020-03-13 04:58] LABS: HEMATOCRIT 40.9 % (42-54); MEAN CORPUSCULAR HEMOGLOBIN 26.2 pg (27.0-33.0); MEAN CORPUSCULAR HGB CONC 33.3 g/dL (32.0-36.0); MEAN CORPUSCULAR VOLUME 78.7 fL (79-99); PLATELET COUNT (AUTO) 78 K/uL (130-400); RED CELL DISTRIBUTION WIDTH 16.1 % (11.0-15.5); WHITE BLOOD COUNT (AUTO) 4.8 K/uL (4.8-10.8)
[2020-03-13 05:57] LABS: LYMPHOCYTES % (MANUAL) 16 % (22-44); MAN.DIFF COMMENT-IMPRESSION MANUAL DIFFERENTIAL; MONOCYTES % (MANUAL) 11 % (2-9); PLATELET MORPHOLOGY COMMENT DECREASED; REACTIVE LYMPHOCYTES 3 % (0-0); SEGMENTED NEUTROPHILS % 70 % (40-70)
[2020-03-13] MEDS: INSULIN HUMULIN R 100 UNIT/ML 3ML SQ SCH ×4 (05:59→20:25)
--- NOTE | 2020-03-13 06:00 | NUR ---
Pt a/ox3. States sob with exertion. On room air. Currently on a milrinone drip, tolerating well. BLE swelling and sob has decreased. Denies chest pain.
[2020-03-13 07:00] VITALS: BP 105/58
[2020-03-13] MEDS: CARVEDILOL 3.125 MG TABLET PO SCH ×2 (09:25→20:51)
[2020-03-13] MEDS: FUROSEMIDE 20 MG TABLET PO SCH ×2 (09:25→20:51)
[2020-03-13] MEDS: SPIRONOLACTONE 25 MG TAB PO SCH ×2 (09:25→20:51)
[2020-03-13] MEDS: LISINOPRIL 2.5 MG TABLET PO SCH (09:25)
[2020-03-13] MEDS: PANTOPRAZOLE SODIUM 40 MG TABLET.DR PO SCH (09:25)
[2020-03-13] MEDS: POTASSIUM CHLORIDE 10% ELIXIR 20 MEQ/15 ML UDCUP PO SCH ×2 (09:26→20:51)
[2020-03-13] MEDS: FOLIC ACID 0.4 MG PO SCH (09:26)
[2020-03-13] MEDS: DULOXETINE HCL 30 MG CAP PO SCH ×2 (09:26→20:51)
[2020-03-13 11:00] VITALS: BP 100/53
[2020-03-13 15:00] VITALS: BP 100/51
[2020-03-13] MEDS: MILRINONE-D5W 20 MG/100 ML 100 ML IV SCH (15:52)
[2020-03-13 19:55] VITALS: BP 99/60
[2020-03-13 23:42] VITALS: BP 100/57
[2020-03-14 03:46] VITALS: BP 103/57
[2020-03-14 04:37] LABS: CREATININE 0.9 mg/dL (0.5-1.5); POTASSIUM 4.2 mmol/L (3.5-5.1); TOTAL PROTEIN, SERUM 6.6 g/dL (6.0-8.3)
[2020-03-14] MEDS: INSULIN HUMULIN R 100 UNIT/ML 3ML SQ SCH ×4 (06:16→21:00)
[2020-03-14] MEDS: MILRINONE-D5W 20 MG/100 ML 100 ML IV SCH ×2 (07:21→20:25)
[2020-03-14 07:30] VITALS: BP 100/58
[2020-03-14] MEDS: FOLIC ACID 0.4 MG PO SCH (09:00)
[2020-03-14] MEDS: LISINOPRIL 2.5 MG TABLET PO SCH (09:09)
[2020-03-14] MEDS: FUROSEMIDE 20 MG TABLET PO SCH ×2 (09:09→20:26)
[2020-03-14] MEDS: SPIRONOLACTONE 25 MG TAB PO SCH ×2 (09:09→20:26)
[2020-03-14] MEDS: DULOXETINE HCL 30 MG CAP PO SCH ×2 (09:09→20:26)
[2020-03-14] MEDS: POTASSIUM CHLORIDE 10% ELIXIR 20 MEQ/15 ML UDCUP PO SCH ×2 (09:10→20:26)
[2020-03-14] MEDS: CARVEDILOL 3.125 MG TABLET PO SCH ×2 (09:10→20:27)
[2020-03-14] MEDS: PANTOPRAZOLE SODIUM 40 MG TABLET.DR PO SCH (09:10)
[2020-03-14 11:00] VITALS: BP 98/54
[2020-03-14 16:00] VITALS: BP 99/57
--- NOTE | 2020-03-14 17:10 | NUR ---
CM Note: [facility] pending approval and chair time CM met with Dr Newman, signed script for [facility] outpatient. Spoke to pt spouse, agreeable, has transportation 3x/wk, CORINNA signed for [facility]. Faxed order, clinicals to [facility], confirmation received. . Dr Rockwell pending to sign covid post acute care assessment, will fax once signed. Pt pending approval and chair time. Primary nurse aware. CM to cont to follow up.
[2020-03-14 20:00] VITALS: BP 105/58
[2020-03-14 23:35] VITALS: BP 96/57
[2020-03-15 03:40] VITALS: BP 99/53
[2020-03-15 04:09] LABS: HEMATOCRIT 45.3 % (42-54); MEAN CORPUSCULAR HEMOGLOBIN 26.5 pg (27.0-33.0); MEAN CORPUSCULAR HGB CONC 33.6 g/dL (32.0-36.0); MEAN CORPUSCULAR VOLUME 78.9 fL (79-99); RED BLOOD CELL COUNT(AUTO) 5.74 MIL/uL (4.50-6.20); RED CELL DISTRIBUTION WIDTH 16.6 % (11.0-15.5); WHITE BLOOD COUNT (AUTO) 4.6 K/uL (4.8-10.8)
[2020-03-15 04:29] LABS: POTASSIUM 4.8 mmol/L (3.5-5.1)
[2020-03-15] MEDS: INSULIN HUMULIN R 100 UNIT/ML 3ML SQ SCH ×3 (06:38→16:30)
[2020-03-15] MEDS: MILRINONE-D5W 20 MG/100 ML 100 ML IV SCH (07:07)
[2020-03-15 07:30] VITALS: BP 106/58
[2020-03-15] MEDS: FOLIC ACID 0.4 MG PO SCH (09:00)
[2020-03-15] MEDS: DULOXETINE HCL 30 MG CAP PO SCH (10:14)
[2020-03-15] MEDS: FUROSEMIDE 20 MG TABLET PO SCH (10:14)
[2020-03-15] MEDS: SPIRONOLACTONE 25 MG TAB PO SCH (10:14)
[2020-03-15] MEDS: CARVEDILOL 3.125 MG TABLET PO SCH (10:15)
[2020-03-15] MEDS: LISINOPRIL 2.5 MG TABLET PO SCH (10:16)
[2020-03-15] MEDS: POTASSIUM CHLORIDE 10% ELIXIR 20 MEQ/15 ML UDCUP PO SCH (10:16)
[2020-03-15] MEDS: PANTOPRAZOLE SODIUM 40 MG TABLET.DR PO SCH (10:17)
[2020-03-15 11:00] VITALS: BP 107/60
--- NOTE | 2020-03-15 11:19 | NUR ---
CM Note: [facility] approval CM spoke to Gwendolyn jack/MISSY, pt has approval. Verbalized may regsiter today. CM spoke to pt given instruction. CM called spouse, left voicemail. Pending spouse to call back. Pt pending to register at this time. Primary nurse aware. CM to cont to follow up.
--- NOTE | 2020-03-15 13:05 | NUR ---
CM Note: spouse registered at [facility] CM spoke to pt's spouse. Able to register. Primary nurse aware. Pending Dr Newman to clear. Dr Rockwell aware. CM to cont to follow up.
--- NOTE | 2020-03-15 14:27 | NUR ---
RD FOLLOW UP NOTE Pt tolerating Full Liquid diet order, good PO (100%), no report of GI distress. Recommend advance diet as tolerated to GI Soft/[place], 75gm CCD diet order Recommend 60mL ProMod BID. ELIZABETH to continue to monitor. Addendum: 03/15/20 at [address] Amended: Links added.
[2020-03-15 16:00] VITALS: BP 105/56
--- NOTE | 2020-03-15 18:46 | NUR ---
DISCHARGE INSTRUCTIONS GIVEN TO PATIENT. TEACH BACK METHOD USED TO EDUCATE PATIENT ABOUT DIET, PICC LINE CARE, S/S TO MONITOR, WHEN TO CALL MD, AND F/U APPOINTMENTS. PATIENT IS SCHEDULED TO GO TO [facility] TOM[facility]ROW. PATIENT'S BARRY WAS ABLE TO SET UP APPOINTMENT. PICC LINE FLUSHED. BOTH LINES WERE PATENT. TELE PACK REMOVED AND RETURNED. ALL BELONGINGS WERE PACKED. PATIENT WAS SAFELY WHEELED BY CONCEPCION REYNA TO HIS PRIVATE VEHICLE. HE WAS PICKED UP BY HIS .
== END 2020-03-15 18:39 | disposition home or self-care (01) | DRG 720 ==
LOC: EDH 21:07 → EDHIP 21:08 → DAHIP 02-26 06:25 → 2AH 02-28 12:06 → DAHIP 02-28 12:12 → 4BH 02-29 18:33 → 4AH 03-07 09:11 → 4BH 03-07 09:14
PROVIDERS: ADMIT Internal Medicine Infectious Disease; ATTEND Internal Medicine Infectious Disease
PROC: 0DJ08ZZ Inspection of Upper Intestinal Tract, Via Natural or Artificial Opening Endoscopic (ICD-10-PCS; principal; 2020-03-01)
PROC: 0FJB8ZZ Inspection of Hepatobiliary Duct, Via Natural or Artificial Opening Endoscopic (ICD-10-PCS; 2020-03-01)
PROC: 02HV33Z Insertion of Infusion Device into Superior Vena Cava, Percutaneous Approach (ICD-10-PCS; 2020-03-07)
DX: A41.9 Sepsis, unspecified organism (principal); K72.00 Acute and subacute hepatic failure without coma; R65.21 Severe sepsis with septic shock; I50.43 Acute on chronic combined systolic (congestive) and diastolic (congestive) heart failure; E43 Unspecified severe protein-calorie malnutrition; K83.1 Obstruction of bile duct; D68.9 Coagulation defect, unspecified; D69.6 Thrombocytopenia, unspecified; E87.1 Hypo-osmolality and hyponatremia; E87.2 Acidosis; I42.0 Dilated cardiomyopathy; N17.9 Acute kidney failure, unspecified; N39.0 Urinary tract infection, site not specified; B96.20 Unspecified Escherichia coli [E. coli] as the cause of diseases classified elsewhere; E87.5 Hyperkalemia; N18.9 Chronic kidney disease, unspecified; K74.60 Unspecified cirrhosis of liver; I13.0 Hypertensive heart and chronic kidney disease with heart failure and stage 1 through stage 4 chronic kidney disease, or unspecified chronic kidney disease; R53.81 Other malaise; F41.9 Anxiety disorder, unspecified; B96.81 Helicobacter pylori [H. pylori] as the cause of diseases classified elsewhere; D64.9 Anemia, unspecified; E87.6 Hypokalemia; F32.9 Major depressive disorder, single episode, unspecified; G40.909 Epilepsy, unspecified, not intractable, without status epilepticus; I25.10 Atherosclerotic heart disease of native coronary artery without angina pectoris; N50.89 Other specified disorders of the male genital organs; R18.8 Other ascites; R62.7 Adult failure to thrive; K86.9 Disease of pancreas, unspecified; R74.8 Abnormal levels of other serum enzymes; Z20.828 Contact with and (suspected) exposure to other viral communicable diseases; T68.XXXA Hypothermia, initial encounter; Z16.12 Extended spectrum beta lactamase (ESBL) resistance; Z68.20 Body mass index [BMI] 20.0-20.9, adult; Z74.01 Bed confinement status; Z90.49 Acquired absence of other specified parts of digestive tract; Z95.810 Presence of automatic (implantable) cardiac defibrillator; Z83.3 Family history of diabetes mellitus; Z80.9 Family history of malignant neoplasm, unspecified; Z82.49 Family history of ischemic heart disease and other diseases of the circulatory system
CPT/HCPCS: 36415; 36600; 43237; 71045; 74176; 76705; 78227; 80048; 80051; 80053; 80069; 80074; 80076; 81001; 82140; 82150; 82247; 82248; 82533; 82550; 82570; 82728; 82803; 82947; 82948; 82977; 83605; 83615; 83690; 83735; 83880; 83935; 84100; 84132; 84156; 84300; 84443; 84484; 85025; 85027; 85610; 85730; 86038; 86255; 86677; 87040; 87077; 87088; 87186; 93005; 93306; 93970; 97039; 99291; A4606; A9537; C1894; C9113; G0378; G0480; J1250; J1644; J1720; J1815; J1940; J2260; J2270; J2405; J2543; J2704; J3475; J3480; J3490; J7030; J7050; J7070

== ENCOUNTER 2020-03-22 15:20 | Inpatient (IN) | payer MEDICAID ==
[~2020-03-22] VITALS: Ht 172.7 cm; Wt 69.2 kg
[~2020-03-22 15:20] MED LIST changes: +ACET-2743 PO; +AEC81 PO; +ATOR-2 PO; +FOLI0.4T2 PO; +FURO40TA5 PO; +MULT-248 PO
[2020-03-22 16:43] LABS: BASOPHILS % (AUTO) 0.1 % (0.0-5.0); EOSINOPHILS % (AUTO) 1.7 % (0.0-8.0); HEMATOCRIT 40.7 % (42-54); LYMPHOCYTES % (AUTO) 20.7 % (21.0-51.0); MEAN CORPUSCULAR HEMOGLOBIN 26.9 pg (27.0-33.0); MEAN CORPUSCULAR HGB CONC 34.2 g/dL (32.0-36.0); MEAN CORPUSCULAR VOLUME 78.7 fL (79-99); MONOCYTES % (AUTO) 11.7 % (3.0-13.0); NEUTROPHILS % (AUTO) 65.4 % (40.0-77.0); NUCLEATED RED BLOOD CELLS 0.7 % (0.0-0.19); PLATELET COUNT (AUTO) 154 K/uL (130-400); RED BLOOD CELL COUNT(AUTO) 5.17 MIL/uL (4.50-6.20); RED CELL DISTRIBUTION WIDTH 17.5 % (11.0-15.5); WHITE BLOOD COUNT (AUTO) 7.5 K/uL (4.8-10.8)
[2020-03-22 16:58] LABS: POTASSIUM 5.9 mmol/L (3.5-5.1)
[2020-03-22 17:01] LABS: ALBUMIN 2.7 g/dL (3.5-5.0); BILIRUBIN,TOTAL 1.7 mg/dL (0.2-1.0); INR 1.28 (0.85-1.15); PARTIAL THROMBOPLASTIN TIME 27.2 SEC (26.3-35.5); PROTHROMBIN TIME 13.7 SEC (9.6-11.6); TOTAL PROTEIN, SERUM 5.9 g/dL (6.0-8.3)
[2020-03-22 17:13] LABS: B-TYPE NATRIURETIC PEPTIDE 1020 pg/mL (0-100)
[2020-03-22] MEDS ORDERED: ONDANSETRON HCL 4 MG/2 ML VIAL ONE (17:42)
[2020-03-22] MEDS ORDERED: SODIUM CHLORIDE 0.9% 1000ML 1,000 ML IV ONE (18:03)
[2020-03-22] MEDS ORDERED: ALBUTEROL SULFATE 0.083% 2.5 MG/3 ML INH IH ONE (18:36)
[2020-03-22] MEDS ORDERED: SODIUM POLYSTYRENE SULFONATE 15 GM/60 ML ML ONE (18:56)
[2020-03-22] MEDS ORDERED: MILRINONE-D5W 20 MG/100 ML 100 ML IV ONE (19:32)
[2020-03-22] MEDS ORDERED: NOREPINEPHRINE BITARTRATE 1 MG/1 ML ML IV ONE (19:58)
[2020-03-22] MEDS ORDERED: ZOSYN 3.375GM+NS 50ML 50 ML IV ONE (19:58)
[2020-03-22] MEDS ORDERED: NOREPINEPHRINE BITARTRATE 8 MG/NS 250ML IV SCH ×2 (20:30)
[2020-03-22] MEDS ORDERED: VANCOMYCIN 1GM+NS 250ML 250 ML IV ONE (20:30)
[2020-03-22] MEDS ORDERED: VANCOMYCIN PROTOCOL PER PHARMACY IV SCH (20:30)
[2020-03-22] MEDS: SODIUM CHLORIDE 0.9% 1000ML 1,000 ML IV SCH (20:30)
[2020-03-22] MEDS ORDERED: ZOSYN 3.375GM+NS 50ML 50 ML IV SCH (21:00)
[2020-03-23] VITALS (19 sets, daily range): BP systolic 95–106; BP diastolic 44–58
[2020-03-23 00:24] LABS: APPEARANCE,URINE Clear (CLEAR); BILIRUBIN,URINE Negative (NEGATIVE); COLOR,URINE Yellow (YELLOW); GLUCOSE, URINE (UA) Negative (NEGATIVE); KETONES,URINE Negative (NEGATIVE); LEUKOCYTE ESTERASE ,URINE Negative (NEGATIVE); NITRATE,URINE Negative (NEGATIVE); OCCULT BLOOD,URINE Negative (NEGATIVE); PROTEIN,URINE Negative (NEGATIVE)
[2020-03-23 03:39] LABS: BASOPHILS % (AUTO) 0.1 % (0.0-5.0); EOSINOPHILS % (AUTO) 2.1 % (0.0-8.0); HEMATOCRIT 38.9 % (42-54); LYMPHOCYTES % (AUTO) 17.5 % (21.0-51.0); MEAN CORPUSCULAR HEMOGLOBIN 26.6 pg (27.0-33.0); MEAN CORPUSCULAR HGB CONC 33.7 g/dL (32.0-36.0); MEAN CORPUSCULAR VOLUME 78.9 fL (79-99); MONOCYTES % (AUTO) 9.9 % (3.0-13.0); NUCLEATED RED BLOOD CELLS 1.6 % (0.0-0.19); PLATELET COUNT (AUTO) 162 K/uL (130-400); RED BLOOD CELL COUNT(AUTO) 4.93 MIL/uL (4.50-6.20); RED CELL DISTRIBUTION WIDTH 17.5 % (11.0-15.5); WHITE BLOOD COUNT (AUTO) 8.5 K/uL (4.8-10.8)
[2020-03-23] MEDS ORDERED: FAMOTIDINE/PF 20 MG/2 ML VIAL IV ONE (03:41)
[2020-03-23 03:52] LABS: CREATININE 1.6 mg/dL (0.5-1.5); POTASSIUM 4.9 mmol/L (3.5-5.1)
[2020-03-23 04:07] LABS: B-TYPE NATRIURETIC PEPTIDE 908 pg/mL (0-100)
[2020-03-23 04:12] LABS: MAGNESIUM 2.9 mg/dL (1.80-2.40); PHOSPHORUS 4.9 mg/dL (2.5-4.9); TROPONIN I 0.06 ng/mL (0.00-0.06)
[2020-03-23] MEDS ORDERED: MILRINONE-D5W 20 MG/100 ML 100 ML IV ONE (06:00)
[2020-03-23] MEDS ORDERED: VANCOMYCIN 500MG+NS 100ML 100 ML IV SCH (06:00)
[2020-03-23] MEDS ORDERED: ZOSYN 3.375GM+NS 50ML 50 ML IV ONE (06:42)
--- NOTE | 2020-03-23 11:45 | NUR ---
NOTIFIED DR LYNN OF CONSULT. UPDATED REGARDING STATUS, V/S, LABS, MEDICATIONS. NOTIFIED HIM THAT PATIENT DID NOT HAVE OUTPATIENT INFUSION AT [facility] DUE TO INSURANCE HAD NOT APPROVED. ORDERS RECEIVED AND CARRIED OUT.
[2020-03-23] MEDS ORDERED: PHARMACY COMMUNICATION MISC SCH (12:00)
--- NOTE | 2020-03-23 12:00 | NUR ---
JOANNA ISIDRO FOR DR GUY HERE TO SEE PT. UPDATED. NO NEW ORDERS.
[2020-03-23] MEDS ORDERED: MIDODRINE HCL 5 MG TABLET PO SCH (12:36)
--- NOTE | 2020-03-23 13:15 | NUR ---
DR LUJAN HERE TO SEE PT UPDATED. HE DISCONTINUED IV ANTIBIOTICS. SPOKE TO PT IN DETAIL REGARDING STATUS AND PLAN OF CARE. POSSIBLE DC THURSDAY.
[2020-03-23] MEDS: MILRINONE-D5W 20 MG/100 ML 100 ML IV SCH (16:57)
--- NOTE | 2020-03-23 17:54 | NUR ---
HAS APPOINTMENT AT [facility] FOR THURSDAY FOR MILRANONE CALL TO [facility]- WAS ADVISED THAT THERE WAS A PROBLEM AT LAST DISCHARGE--- COMMUNICATION- WITH A REGISTRATION AND [facility]- THAT THE INFORMATION NEVER GOT TO THE CLINIC SCHEDULERS . NOW THE INSURANCE HAS APPROVED AND PATIENT HAS A SPOT STARTING THURSDAY CALL TO SPOUSE, VERY TEARFUL STATS PT VERY UPSET- NOT GETTING BETTER, NO ONE CALL FROM [facility], APOLOGIES MADE, REASSURED HAS SPO T STARTING THURSDAY OR WHENEVER READY TO LEAVE HERE. CALL TO PATIENT, REASSURED OF SAME THING. [facility] HOME, [facility] FOLLOW UP, APPT W LIVER SPECIALIST PREVISOULY ARRANGED IN THE FALL. VERB UNDERSTNDING Addendum: 03/23/20 at 1800 by CHELITA BAILEY RN Amended: Links added.
[2020-03-23] MEDS: SODIUM CHLORIDE 0.9% 1000ML 1,000 ML IV SCH (21:57)
[2020-03-23] MEDS: MIDODRINE HCL 5 MG TABLET PO SCH (21:59)
[2020-03-24] VITALS (14 sets, daily range): BP systolic 90–116; BP diastolic 41–64
[2020-03-24] MEDS: MILRINONE-D5W 20 MG/100 ML 100 ML IV SCH ×2 (02:13→22:57)
[2020-03-24 03:27] LABS: BASOPHILS % (AUTO) 0.3 % (0.0-5.0); EOSINOPHILS % (AUTO) 0.3 % (0.0-8.0); HEMATOCRIT 35.9 % (42-54); LYMPHOCYTES % (AUTO) 23.9 % (21.0-51.0); MEAN CORPUSCULAR HEMOGLOBIN 26.8 pg (27.0-33.0); MEAN CORPUSCULAR HGB CONC 33.7 g/dL (32.0-36.0); MEAN CORPUSCULAR VOLUME 79.6 fL (79-99); MONOCYTES % (AUTO) 12.6 % (3.0-13.0); NEUTROPHILS % (AUTO) 62.6 % (40.0-77.0); NUCLEATED RED BLOOD CELLS 1.1 % (0.0-0.19); PLATELET COUNT (AUTO) 158 K/uL (130-400); RED BLOOD CELL COUNT(AUTO) 4.51 MIL/uL (4.50-6.20); RED CELL DISTRIBUTION WIDTH 17.4 % (11.0-15.5); WHITE BLOOD COUNT (AUTO) 6.4 K/uL (4.8-10.8)
[2020-03-24 03:36] LABS: CREATININE 1.1 mg/dL (0.5-1.5); POTASSIUM 3.9 mmol/L (3.5-5.1)
[2020-03-24] MEDS: MIDODRINE HCL 5 MG TABLET PO SCH ×2 (08:08→22:56)
[2020-03-25] VITALS (7 sets, daily range): BP systolic 104–122; BP diastolic 51–64
[2020-03-25] MEDS: MIDODRINE HCL 5 MG TABLET PO SCH (08:44)
[2020-03-25] MEDS ORDERED: CARVEDILOL 3.125 MG TABLET PO SCH (09:00)
--- NOTE | 2020-03-25 11:58 | NUR ---
CONFIRMED 799 AT [facility]
--- NOTE | 2020-03-25 13:00 | NUR ---
DISCHARGED VIA WHEELCHAIR. PICKED UP BY SPOUSE. D/C INSTRUCTIONS GIVEN IN DETAIL REGARDING MEDICATIONS, CHF MONITORING, NEW RX CALLED IN TO PREFERRED PHARMACY, FOLLOW UP WITH DR LYNN THIS WEEK ORDERED BY DR GARCIA, INSTRUCTED IN DETAIL REGARDING MEDICATION REGIMEN : STOP LISINOPRIL AND EPLERENONE ORDERED BY DR GARCIA. VERBALIZED UNDERSTANDING. ALL BELONGINGS TAKEN WITH PATIENT. NO DISTRESS UPON DISCHARGE.
== END 2020-03-25 13:36 | disposition home or self-care (01) | DRG 194 ==
LOC: EDH 15:20 → EDHIP 18:58 → DAHIP 03-23 06:26
PROVIDERS: ADMIT Internal Medicine Infectious Disease; ATTEND Internal Medicine Infectious Disease
DX: I13.0 Hypertensive heart and chronic kidney disease with heart failure and stage 1 through stage 4 chronic kidney disease, or unspecified chronic kidney disease (principal); N17.9 Acute kidney failure, unspecified; E87.1 Hypo-osmolality and hyponatremia; I95.9 Hypotension, unspecified; I42.0 Dilated cardiomyopathy; I50.23 Acute on chronic systolic (congestive) heart failure; I25.5 Ischemic cardiomyopathy; E78.5 Hyperlipidemia, unspecified; E87.5 Hyperkalemia; G40.909 Epilepsy, unspecified, not intractable, without status epilepticus; K76.9 Liver disease, unspecified; F32.9 Major depressive disorder, single episode, unspecified; F41.9 Anxiety disorder, unspecified; N18.9 Chronic kidney disease, unspecified; Z79.899 Other long term (current) drug therapy; Z91.19 Patient's noncompliance with other medical treatment and regimen; Z95.810 Presence of automatic (implantable) cardiac defibrillator; Z90.49 Acquired absence of other specified parts of digestive tract
CPT/HCPCS: 36415; 71045; 80048; 80053; 81003; 82150; 82550; 83605; 83690; 83735; 83874; 83880; 84100; 84132; 84484; 85025; 85610; 85651; 85730; 86140; 87040; 93005; 94640; 99291; G0378; J2260; J2405; J2543; J3370; J3490; J7030

== ENCOUNTER 2020-04-06 02:05 | Inpatient (IN) | payer MEDICAID ==
[~2020-04-06] VITALS: Ht 170.2 cm; Wt 65.5 kg
[~2020-04-06 02:05] MED LIST changes: -ASPI-556 PO
[2020-04-06] MEDS ORDERED: ONDANSETRON HCL 4 MG/2 ML VIAL ONE (02:23)
[2020-04-06 02:42] LABS: LYMPHOCYTES % (AUTO) 13.2 % (21.0-51.0); MEAN CORPUSCULAR HEMOGLOBIN 26.4 pg (27.0-33.0); MEAN CORPUSCULAR HGB CONC 33.7 g/dL (32.0-36.0); MEAN CORPUSCULAR VOLUME 78.5 fL (79-99); MONOCYTES % (AUTO) 5.6 % (3.0-13.0); NEUTROPHILS % (AUTO) 80.8 % (40.0-77.0); NUCLEATED RED BLOOD CELLS 4.7 % (0.0-0.19); PLATELET COUNT (AUTO) 83 K/uL (130-400); RED BLOOD CELL COUNT(AUTO) 5.22 MIL/uL (4.50-6.20); RED CELL DISTRIBUTION WIDTH 18.6 % (11.0-15.5); WHITE BLOOD COUNT (AUTO) 7.3 K/uL (4.8-10.8)
[2020-04-06] MEDS ORDERED: FAMOTIDINE/PF 20 MG/2 ML VIAL IV ONE (02:47)
[2020-04-06] MEDS ORDERED: METOCLOPRAMIDE 10 MG/2 ML VIAL ONE (02:47)
[2020-04-06 02:56] LABS: INR 2.24 (0.85-1.15); PARTIAL THROMBOPLASTIN TIME 35.3 SEC (26.3-35.5); PROTHROMBIN TIME 23.5 SEC (9.6-11.6)
[2020-04-06 02:58] LABS: ALBUMIN 2.8 g/dL (3.5-5.0); BILIRUBIN,TOTAL 4.9 mg/dL (0.2-1.0); CREATININE 1.4 mg/dL (0.5-1.5)
[2020-04-06] MEDS ORDERED: FUROSEMIDE 10 MG/ML 4ML VIAL ONE ×2 (03:41→04:22)
[2020-04-06 03:58] LABS: APPEARANCE,URINE Clear (CLEAR); BILIRUBIN,URINE Small (NEGATIVE); COLOR,URINE Dark Yellow (YELLOW); GLUCOSE, URINE (UA) Negative (NEGATIVE); KETONES,URINE Negative (NEGATIVE); LEUKOCYTE ESTERASE ,URINE Negative (NEGATIVE); NITRATE,URINE Negative (NEGATIVE); OCCULT BLOOD,URINE Negative (NEGATIVE); PROTEIN,URINE Negative (NEGATIVE)
[2020-04-06 05:30] VITALS: BP 102/51
[2020-04-06 08:00] VITALS: BP 91/43
[2020-04-06 08:18] LABS: HEMATOCRIT 41.1 % (42-54); MEAN CORPUSCULAR HEMOGLOBIN 26.4 pg (27.0-33.0); MEAN CORPUSCULAR HGB CONC 34.1 g/dL (32.0-36.0); MEAN CORPUSCULAR VOLUME 77.5 fL (79-99); NUCLEATED RED BLOOD CELLS 5.9 % (0.0-0.19); PLATELET COUNT (AUTO) 78 K/uL (130-400); RED CELL DISTRIBUTION WIDTH 18.5 % (11.0-15.5); WHITE BLOOD COUNT (AUTO) 6.8 K/uL (4.8-10.8)
[2020-04-06 08:29] LABS: CREATININE 1.4 mg/dL (0.5-1.5); MAGNESIUM 2.5 mg/dL (1.80-2.40); POTASSIUM 5.2 mmol/L (3.5-5.1)
[2020-04-06 09:27] LABS: LYMPHOCYTES % (MANUAL) 12 % (22-44); MONOCYTES % (MANUAL) 3 % (2-9); SEGMENTED NEUTROPHILS % 85 % (40-70)
[2020-04-06 09:28] LABS: MAN.DIFF COMMENT-IMPRESSION MANUAL DIFFERENTIAL
[2020-04-06 09:29] LABS: PLATELET MORPHOLOGY COMMENT DECREASED
[2020-04-06] MEDS: FUROSEMIDE 10 MG/ML 4ML VIAL IVP SCH (11:36)
[2020-04-06 12:00] VITALS: BP 102/48
[2020-04-06] MEDS ORDERED: PHARMACY COMMUNICATION MISC SCH (16:15)
[2020-04-06] MEDS ORDERED: MILRINONE-D5W 20 MG/100 ML 100 ML IV SCH (16:30)
[2020-04-06 19:58] VITALS: BP 110/61
[2020-04-06 23:51] VITALS: BP 142/86
[2020-04-07 03:49] VITALS: BP 110/58
[2020-04-07 04:27] LABS: EOSINOPHILS % (AUTO) 1.7 % (0.0-8.0); HEMATOCRIT 38.1 % (42-54); LYMPHOCYTES % (AUTO) 9.3 % (21.0-51.0); MEAN CORPUSCULAR HEMOGLOBIN 25.7 pg (27.0-33.0); MEAN CORPUSCULAR HGB CONC 34.1 g/dL (32.0-36.0); MEAN CORPUSCULAR VOLUME 75.3 fL (79-99); MONOCYTES % (AUTO) 8.8 % (3.0-13.0); PLATELET COUNT (AUTO) 78 K/uL (130-400); RED BLOOD CELL COUNT(AUTO) 5.06 MIL/uL (4.50-6.20)
[2020-04-07 04:34] LABS: INR 2.03 (0.85-1.15); PARTIAL THROMBOPLASTIN TIME 36.6 SEC (26.3-35.5); PROTHROMBIN TIME 21.3 SEC (9.6-11.6)
[2020-04-07 04:40] LABS: B-TYPE NATRIURETIC PEPTIDE 3400 pg/mL (0-100)
[2020-04-07 05:35] LABS: ALBUMIN 2.7 g/dL (3.5-5.0); BILIRUBIN,DIRECT 3.1 mg/dL (0.0-0.3); CREATININE 1.3 mg/dL (0.5-1.5); MAGNESIUM 3.1 mg/dL (1.80-2.40); POTASSIUM 4.4 mmol/L (3.5-5.1); TOTAL PROTEIN, SERUM 5.5 g/dL (6.0-8.3)
[2020-04-07] MEDS: MILRINONE-D5W 20 MG/100 ML 100 ML IV SCH ×2 (06:16→21:51)
[2020-04-07 08:00] VITALS: BP 114/63
[2020-04-07] MEDS: SPIRONOLACTONE 25 MG TAB PO SCH (10:08)
[2020-04-07] MEDS: FUROSEMIDE 10 MG/ML 4ML VIAL IVP SCH (10:10)
[2020-04-07] MEDS ORDERED: LISINOPRIL 5 MG TABLET PO SCH ×2 (10:15→21:00)
[2020-04-07 11:23] VITALS: BP 112/66
--- NOTE | 2020-04-07 11:38 | NUR ---
care transfered to awilda couch.
[2020-04-07 15:58] VITALS: BP 119/65
--- NOTE | 2020-04-07 18:21 | NUR ---
D/C PLAN CM spoke to pt regarding d/c planning. Pt is ind. and lives with spouse. States spouse assists in care as needed. Pt has wk at home. Son assists with transporation. Plan to home. Pt attends [facility] for milrinone infusion. Pt states he is also following up with a physician in [place] and is anxious to return home. No needs verbalized. CM to f/u. Addendum: 04/07/20 at 1824 by MOIZ WOLFE CM Amended: Links added.
[2020-04-07 19:00] VITALS: BP 120/71
[2020-04-07] MEDS ORDERED: CARVEDILOL 25 MG TABLET PO SCH ×2 (21:00)
[2020-04-07] MEDS: DULOXETINE HCL 40 MG PO SCH (21:00)
[2020-04-07 23:00] VITALS: BP 107/62
[2020-04-08 03:00] VITALS: BP 103/70
[2020-04-08 04:43] LABS: EOSINOPHILS % (AUTO) 0.3 % (0.0-8.0); LYMPHOCYTES % (AUTO) 12.5 % (21.0-51.0); MEAN CORPUSCULAR HEMOGLOBIN 26.3 pg (27.0-33.0); MEAN CORPUSCULAR HGB CONC 33.5 g/dL (32.0-36.0); MEAN CORPUSCULAR VOLUME 78.6 fL (79-99); MONOCYTES % (AUTO) 8.2 % (3.0-13.0); NEUTROPHILS % (AUTO) 78.5 % (40.0-77.0); NUCLEATED RED BLOOD CELLS 0.8 % (0.0-0.19); PLATELET COUNT (AUTO) 67 K/uL (130-400); RED BLOOD CELL COUNT(AUTO) 4.71 MIL/uL (4.50-6.20); RED CELL DISTRIBUTION WIDTH 18.6 % (11.0-15.5); WHITE BLOOD COUNT (AUTO) 8.9 K/uL (4.8-10.8)
[2020-04-08 05:02] LABS: ALBUMIN 2.4 g/dL (3.5-5.0); BILIRUBIN,DIRECT 2.3 mg/dL (0.0-0.3); BILIRUBIN,TOTAL 4.6 mg/dL (0.2-1.0); MAGNESIUM 2.3 mg/dL (1.80-2.40); POTASSIUM 3.9 mmol/L (3.5-5.1); TOTAL PROTEIN, SERUM 5.2 g/dL (6.0-8.3)
[2020-04-08 05:10] LABS: B-TYPE NATRIURETIC PEPTIDE 2400 pg/mL (0-100)
[2020-04-08 07:00] VITALS: BP 111/63
[2020-04-08] MEDS: ***HM***(Eplerenone 25 MG) PO SCH (09:00)
[2020-04-08] MEDS: DULOXETINE HCL 40 MG PO SCH ×2 (09:00→21:00)
[2020-04-08] MEDS: MILRINONE-D5W 20 MG/100 ML 100 ML IV SCH (09:47)
[2020-04-08] MEDS: ASPIRIN 81 MG EC TAB PO SCH (09:48)
[2020-04-08] MEDS: FOLIC ACID 1 MG TABLET PO SCH (09:48)
[2020-04-08] MEDS: FUROSEMIDE 10 MG/ML 4ML VIAL IVP SCH (09:48)
[2020-04-08] MEDS: SPIRONOLACTONE 25 MG TAB PO SCH (09:48)
[2020-04-08] MEDS: LISINOPRIL 5 MG TABLET PO SCH (09:49)
[2020-04-08] MEDS: CARVEDILOL 3.125 MG TABLET PO SCH ×2 (09:49→22:00)
[2020-04-08 11:00] VITALS: BP 106/60
[2020-04-08 15:49] VITALS: BP 102/45
[2020-04-08 19:57] VITALS: BP 92/51
[2020-04-08 23:38] VITALS: BP 97/52
[2020-04-09] MEDS: MILRINONE-D5W 20 MG/100 ML 100 ML IV SCH ×2 (02:22→13:37)
[2020-04-09 04:00] VITALS: BP 85/47
--- NOTE | 2020-04-09 04:00 | NUR ---
Refusing Labs Patient states that he has gotten too many lab draws and is tired of getting woken up at 4AM states he does not want any labs this morning. Asked patient to reconsider and advised we would ask him at a later time .
[2020-04-09 07:47] VITALS: BP 105/60
[2020-04-09] MEDS: ***HM***(Eplerenone 25 MG) PO SCH (09:00)
[2020-04-09] MEDS: DULOXETINE HCL 40 MG PO SCH ×2 (09:00→21:00)
[2020-04-09] MEDS: FOLIC ACID 1 MG TABLET PO SCH (09:00)
[2020-04-09] MEDS: CARVEDILOL 3.125 MG TABLET PO SCH ×2 (10:07→22:43)
[2020-04-09] MEDS: ASPIRIN 81 MG EC TAB PO SCH (10:07)
[2020-04-09] MEDS: SPIRONOLACTONE 25 MG TAB PO SCH (10:08)
[2020-04-09] MEDS: FUROSEMIDE 40 MG TABLET PO SCH (10:08)
[2020-04-09] MEDS: LISINOPRIL 5 MG TABLET PO SCH (10:08)
[2020-04-09 11:05] VITALS: BP 103/52
[2020-04-09 11:45] LABS: EOSINOPHILS % (AUTO) 0.3 % (0.0-8.0); HEMATOCRIT 37.6 % (42-54); LYMPHOCYTES % (AUTO) 9.6 % (21.0-51.0); MEAN CORPUSCULAR HEMOGLOBIN 26.2 pg (27.0-33.0); MEAN CORPUSCULAR HGB CONC 33.2 g/dL (32.0-36.0); MEAN CORPUSCULAR VOLUME 78.8 fL (79-99); MONOCYTES % (AUTO) 10.4 % (3.0-13.0); NEUTROPHILS % (AUTO) 79.4 % (40.0-77.0); PLATELET COUNT (AUTO) 79 K/uL (130-400); RED BLOOD CELL COUNT(AUTO) 4.77 MIL/uL (4.50-6.20); RED CELL DISTRIBUTION WIDTH 18.6 % (11.0-15.5)
[2020-04-09 12:02] LABS: ALANINE AMINOTRANSFERASE 157 U/L (12-78); ALBUMIN 2.3 g/dL (3.5-5.0); ASPARTATE AMINOTRANSFERASE 72 U/L (10-37); BILIRUBIN,TOTAL 4.3 mg/dL (0.2-1.0); CARBON DIOXIDE 30 mmol/L (21-32); CHLORIDE 98 mmol/L (101-111); CREATININE 0.7 mg/dL (0.5-1.5); GLOMERULAR FILTR. RATE CALC 128 mL/min (>60); GLUCOSE,RANDOM 123 mg/dL (70-105); POTASSIUM 3.5 mmol/L (3.5-5.1); SODIUM SERUM 134 mmol/L (136-145); TOTAL PROTEIN, SERUM 5.2 g/dL (6.0-8.3); UREA NITROGEN, BLOOD 19 mg/dL (7-18)
[2020-04-09 12:05] LABS: AMMONIA < 3 umol/L (11-32)
[2020-04-09 12:06] LABS: B-TYPE NATRIURETIC PEPTIDE 2040 pg/mL (0-100)
--- NOTE | 2020-04-09 13:05 | NUR ---
DISPOSITION TO HOME EXPECTED, ENTERED Addendum: 04/09/20 at 1307 by CHELITA BAILEY RN CM Amended: Links added.
[2020-04-09 16:35] VITALS: BP 96/50
--- NOTE | 2020-04-09 18:42 | NUR ---
DR. LYNN PER , PATIENT OKAY TO BE DISCHARGED FROM CARDIOLOGY STANDPOINT.
[2020-04-09 20:00] VITALS: BP 96/50
[2020-04-09 23:30] VITALS: BP 99/49
[2020-04-10 04:00] VITALS: BP 91/53
[2020-04-10 07:00] VITALS: BP_SYST 126; BP_SYST 92; BP_DIAS 51; BP_DIAS 56
[2020-04-10] MEDS: ASPIRIN 81 MG EC TAB PO SCH (07:57)
[2020-04-10] MEDS: FUROSEMIDE 40 MG TABLET PO SCH (07:57)
[2020-04-10] MEDS: SPIRONOLACTONE 25 MG TAB PO SCH (07:57)
[2020-04-10] MEDS: MILRINONE-D5W 20 MG/100 ML 100 ML IV SCH (07:57)
[2020-04-10] MEDS: LISINOPRIL 5 MG TABLET PO SCH (07:58)
[2020-04-10] MEDS: CARVEDILOL 3.125 MG TABLET PO SCH (07:59)
[2020-04-10] MEDS: FOLIC ACID 1 MG TABLET PO SCH (07:59)
[2020-04-10 11:00] VITALS: BP 90/48
--- NOTE | 2020-04-10 11:00 | NUR ---
DEMI GEORGES MOUNTER HAND NOTIFIED OF DISCHARGE ORDER, STATED PATIENT OKAY TO BE DISCHARGED FROM PULMONOLOGY STANDPOINT.
--- NOTE | 2020-04-10 11:10 | NUR ---
DR. MARK FLORES NOTIFIED ABOUT DISCHARGE ORDER. SHE SAID NO IMMEDIATE INTERVENTIONS NEED TO BE MADE BASED ON SCANS FROM YESTERDAY. SHE SAID PATIENT IS OKAY TO BE DISCHARGE HOME FROM THEIR STANDPOINT.
--- NOTE | 2020-04-10 11:45 | NUR ---
DISCHARGE GAVE ORDERS TO DISCHARGE PATIENT HOME WITH ALL SAME HOME MEDICATIONS.
--- NOTE | 2020-04-10 13:10 | NUR ---
DISCHARGE PATIENT SIGNED DISCHARGE PAPERWORK AT THIS TIME. PATIENT UNDERSTOOD IMPORTANCE OF MAKING ALL FOLLOW UP APPOINTMENTS AND CONTINUING MEDS AT HOME. NO FURTHER QUESTIONS AT THIS TIME. HEALTHCARE ADVISORY SERVICES MANAGER DISCONTINUED. PATIENT HAS PICC LINE FOR PRIMACOR INFUSIONS THAT WILL STAY IN PLACE ON DISCHARGE.
--- NOTE | 2020-04-10 13:25 | NUR ---
PATIENT TAKEN DOWN TO ED AT THIS TIME. FAMILY WAITING FOR PATIENT TO TAKE HIM HOME.
[2020-04-11 03:08] LABS: HEPATITIS A ANTIBODY IGM Negative (Negative); HEPATITIS B CORE IGM Negative (Negative); HEPATITIS Bs ANTIGEN SCREEN P Negative (Negative)
== END 2020-04-10 13:20 | disposition home or self-care (01) | DRG 194 ==
LOC: EDH 02:05 → OBSVTOIN 02:06 → EDHIP 02:06 → 3AH 05:04 → 4DH 17:06 → 4AH 04-07 11:41
PROVIDERS: ADMIT Internal Medicine Infectious Disease; ATTEND Internal Medicine Infectious Disease
DX: I13.0 Hypertensive heart and chronic kidney disease with heart failure and stage 1 through stage 4 chronic kidney disease, or unspecified chronic kidney disease (principal); D69.6 Thrombocytopenia, unspecified; I42.0 Dilated cardiomyopathy; N18.3 Chronic kidney disease, stage 3 (moderate); I50.43 Acute on chronic combined systolic (congestive) and diastolic (congestive) heart failure; I42.8 Other cardiomyopathies; E87.1 Hypo-osmolality and hyponatremia; Z95.810 Presence of automatic (implantable) cardiac defibrillator; R53.81 Other malaise; I25.5 Ischemic cardiomyopathy; R74.8 Abnormal levels of other serum enzymes; G40.909 Epilepsy, unspecified, not intractable, without status epilepticus; F32.9 Major depressive disorder, single episode, unspecified; E66.9 Obesity, unspecified
CPT/HCPCS: 36415; 71045; 74176; 76705; 78226; 80048; 80053; 80074; 81003; 82140; 82248; 82550; 83605; 83690; 83735; 83880; 84484; 85025; 85027; 85610; 85730; 86701; 87040; 87390; 93005; A9537; G0378; G0480; J1940; J2260; J2405; J2765; J3490